=== PATIENT | female | born 1970 | race Caucasian/White ===

== ENCOUNTER 2018-03-17 11:13 | Emergency (ER) | payer MEDICAID ==
[2018-03-17 11:57] LABS: MUDS CUTOFF CONCENTRATIONS CUTOFF CONC BELOW:
[2018-03-17 12:01] LABS: BILIRUBIN,URINE NEGATIVE (NEGATIVE); GLUCOSE, URINE (UA) NEGATIVE (NEGATIVE); KETONES,URINE (UA) NEGATIVE (NEGATIVE); LEUKOCYTE ESTERASE, URINE NEGATIVE (NEGATIVE); NITRITE,URINE NEGATIVE (NEGATIVE); OCCULT BLOOD,URINE NEGATIVE (NEGATIVE); PH,URINE 5.5 PH (5.0-7.5); PROTEIN,URINE NEGATIVE (NEGATIVE); UROBILINOGEN,URINE 0.2 (NORMAL) E.U./dL (NORMAL)
[2018-03-17 12:05] LABS: CLARITY,URINE CLEAR (CLEAR); HCG UR QUAL NEGATIVE
[2018-03-17 12:13] LABS: ACETAMINOPHEN < 10 ug/mL (10-30); ALBUMIN 3.8 g/dL (3.2-5.5); ALBUMIN/GLOBULIN RATIO 1.3 (1.0-2.2); ALKALINE PHOSPHATASE 54 IU/L (42-121); ALT ALANINE AMINOTRANSFERASE 21 IU/L (10-60); AST ASPARTATE AMINOTRANSFERASE 30 IU/L (10-42); BILIRUBIN,TOTAL 0.5 mg/dL (0.2-1.0); BUN - BLOOD UREA NITROGEN 21 mg/dL (6-20); CALCIUM 8.5 mg/dL (8.5-10.3); CARBON DIOXIDE - CO2 27 mmol/L (21-32); CHLORIDE 101 mmol/L (101-111); CREATININE 0.7 mg/dL (0.4-1.0); GFR - MDRD 90 (>89); GLUCOSE 100 mg/dL (70-100); LIPASE 27 U/L (22-51); SALICYLATE < 6.0 mg/dL; SODIUM 136 mmol/L (135-145); TOTAL PROTEIN 6.8 g/dL (6.7-8.2)
[2018-03-17] MEDS ORDERED: TOPIRAMATE 100 MG TABLET PO STA (12:18)
[2018-03-17] MEDS ORDERED: clonazePAM 0.5 MG TABLET PO STA (12:21)
[2018-03-17 12:22] LABS: AMPHETAMINE SCREEN,URINE NEGATIVE (NEGATIVE); BENZODIAZEPINES SCREEN, URINE NEGATIVE (NEGATIVE); COCAINE SCREEN URINE POSITIVE (NEGATIVE); METHADONE SCREEN, URINE NEGATIVE (NEGATIVE); METHAMPHETAMINES SCREEN, URINE NEGATIVE (NEGATIVE); OPIATE SCREEN, URINE POSITIVE (NEGATIVE); OXYCODONE SCREEN, URINE NEGATIVE (NEGATIVE); PROPOXYPHENE SCREEN, URINE NEGATIVE (NEGATIVE); TRICYCLIC ANTIDEPRESSANT,URINE NEGATIVE (NEGATIVE)
[2018-03-17 12:22] LABS: BASOPHILS % (AUTO) 0.6 %; EOSINOPHILS # (AUTO) 0.2 10^3/uL (0.0-0.7); EOSINOPHILS % (AUTO) 2.4 %; HGB - HEMOGLOBIN 11.4 g/dL (12.0-16.0); LYMPHOCYTES # (AUTO) 2.4 10^3/uL (1.5-3.5); LYMPHOCYTES % (AUTO) 30.5 %; MEAN CORPUSCULAR HEMOGLOBIN 29.2 pg (27.0-31.0); MEAN CORPUSCULAR HGB CONC 33.5 g/dL (32.0-36.0); MEAN CORPUSCULAR VOLUME 87.2 fL (81.0-99.0); MEAN PLATELET VOLUME 8.9 fL (7.9-10.8); MONOCYTES # (AUTO) 0.8 10^3/uL (0.0-1.0); MONOCYTES % (AUTO) 9.7 %; NEUTROPHILS # (AUTO) 4.4 10^3/uL (1.5-6.6); NEUTROPHILS % (AUTO) 56.8 %; PLT - PLATELET COUNT 196 10^3/uL (130-450); WHITE BLOOD COUNT 7.8 x10^3/uL (4.8-10.8)
--- NOTE | 2018-03-17 12:22 | ED Physician Documentation ---
History of Present Illness - Stated complaint Stated Complaint: MHE/FEMALE - Chief complaint Chief Complaint: MHE - History obtained from History obtained from: Patient, Family (dad) - History of Present Illness Timing: Other (This is a 47-year-old woman who presents with her father for several complaints. First and foremost is for the last month she has been depressed. She has no suicidal ideation. The root of the depression is that she has a history of drug use that finished in 2006 and then she was successful for many years but due to a number of issues she basically lost everything and m moody out here to be with her father. She is never been under treatment for depression. Of note she also stopped her Topamax which she was taking for seizure disorder around the same time as the depression started. She has relapsed into drug use and last use was about 3 days ago. Secondly she has urinary urgency and frequency without dysuria or flank pain. Finally she has toenail fungus.) Review of Systems Constitutional: denies: Fever, Chills, Weight Loss Eyes: reports: Reviewed and negative Cardiac: denies: Chest pain / pressure, Palpitations Respiratory: denies: Dyspnea, Cough PD PAST MEDICAL HISTORY - Present Medications Home Medications: Ambulatory Orders Medication Instructions Recorded Confirmed FLUoxetine [PROzac] 20 mg PO DAILY #30 capsule 03/17/18 Lorazepam [Ativan] 1 mg PO TID PRN #15 tablet 03/17/18 - Allergies Allergies/Adverse Reactions: Allergies Allergy/AdvReac Type Severity Reaction Status Date / Time No Known Drug Allergies Allergy Verified 03/17/18 11:24 PD ED PE NORMAL - Vitals Vital signs reviewed: Yes - General General: Alert and oriented X 3, Other (Somewhat restless and intermittently tearful) - HEENT HEENT: PERRL, EOMI - Neck Neck: Supple, no meningeal sign, No bony TTP - Cardiac Cardiac: RRR, No murmur - Respiratory Respiratory: No respiratory distress, Clear bilaterally - Abdomen Abdomen: Non tender - Back Back: No CVA TTP, No spinal TTP - Derm Derm: Normal color, Warm and dry - Extremities Extremities: Other (The dorsum of the right hand is swollen and tender but without warmth or limited range of motion. She denies any recent injection drug use there. She does state that she is might of hit it on something.) - Neuro Neuro: Alert and oriented X 3, Normal speech - Psych Psych: Normal mood, Normal affect Results - Vitals Vitals: Vital Signs - 24 hr 03/17/18 11:20 Temperature 36.5 C Heart Rate 63 Respiratory 16 Rate Blood Pressure 132/108 H O2 Saturation 99 Oxygen O2 Source Room air - Labs Labs: Laboratory Tests 03/17/18 03/17/18 03/17/18 11:30 11:30 11:50 WBC 7.8 RBC 3.90 L Hgb 11.4 L Hct 34.0 L MCV 87.2 MCH 29.2 MCHC 33.5 RDW 15.0 Plt Count 196 MPV 8.9 Neut # (Auto) 4.4 Lymph # (Auto) 2.4 [place] # (Auto) 0.8 Eos # (Auto) 0.2 Baso # (Auto) 0.0 Absolute Nucleated RBC 0.00 Nucleated RBC % 0.0 Sodium Potassium Chloride Carbon Dioxide Anion Gap BUN Creatinine Estimated GFR (MDRD) Glucose Calcium Total Bilirubin AST ALT Alkaline Phosphatase Total Protein Albumin Globulin Albumin/Globulin Ratio Lipase TSH Thyroxine (T4) Free T3 pg/mL Urine Color YELLOW Urine Clarity CLEAR Urine pH 5.5 Ur Specific [place] 1.025 Urine Protein NEGATIVE Urine Glucose (UA) NEGATIVE Urine Ketones NEGATIVE Urine Occult Blood NEGATIVE Urine Nitrite NEGATIVE Urine Bilirubin NEGATIVE Urine Urobilinogen 0.2 (NORMAL) Ur Leukocyte Esterase NEGATIVE Ur Microscopic Review NOT INDICATED Urine Culture Comments NOT INDICATED Urine HCG, Qual NEGATIVE Salicylates Urine Opiates Screen POSITIVE H Ur Oxycodone Screen NEGATIVE Urine Methadone Screen NEGATIVE Ur Propoxyphene Screen NEGATIVE Acetaminophen Ur Barbiturates Screen NEGATIVE Ur Tricyclics Screen NEGATIVE Ur Phencyclidine Scrn NEGATIVE Ur Amphetamine Screen NEGATIVE U Methamphetamines Scrn NEGATIVE U Benzodiazepines Scrn NEGATIVE Urine Cocaine Screen POSITIVE H U Cannabinoids Screen NEGATIVE Ethyl Alcohol 03/17/18 03/17/18 03/17/18 11:50 11:50 11:50 WBC RBC Hgb Hct MCV MCH MCHC RDW Plt Count MPV Neut # (Auto) Lymph # (Auto) [place] # (Auto) Eos # (Auto) Baso # (Auto) Absolute Nucleated RBC Nucleated RBC % Sodium 136 Potassium 3.7 Chloride 101 Carbon Dioxide 27 Anion Gap 8.0 BUN 21 H Creatinine 0.7 Estimated GFR (MDRD) 90 Glucose 100 Calcium 8.5 Total Bilirubin 0.5 AST 30 ALT 21 Alkaline Phosphatase 54 Total Protein 6.8 Albumin 3.8 Globulin 3.0 Albumin/Globulin Ratio 1.3 Lipase 27 TSH 8.15 H Thyroxine (T4) 7.83 Free T3 pg/mL Urine Color Urine Clarity Urine pH Ur Specific [place] Urine Protein Urine Glucose (UA) Urine Ketones Urine Occult Blood Urine Nitrite Urine Bilirubin Urine Urobilinogen Ur Leukocyte Esterase Ur Microscopic Review Urine Culture Comments Urine HCG, Qual Salicylates < 6.0 Urine Opiates Screen Ur Oxycodone Screen Urine Methadone Screen Ur Propoxyphene Screen Acetaminophen < 10 L Ur Barbiturates Screen Ur Tricyclics Screen Ur Phencyclidine Scrn Ur Amphetamine Screen U Methamphetamines Scrn U Benzodiazepines Scrn Urine Cocaine Screen U Cannabinoids Screen Ethyl Alcohol < 5.0 03/17/18 11:50 WBC RBC Hgb Hct MCV MCH MCHC RDW Plt Count MPV Neut # (Auto) Lymph # (Auto) [place] # (Auto) Eos # (Auto) Baso # (Auto) Absolute Nucleated RBC Nucleated RBC % Sodium Potassium Chloride Carbon Dioxide Anion Gap BUN Creatinine Estimated GFR (MDRD) Glucose Calcium Total Bilirubin AST ALT Alkaline Phosphatase Total Protein Albumin Globulin Albumin/Globulin Ratio Lipase TSH Thyroxine (T4) Free T3 pg/mL 3.72 Urine Color Urine Clarity Urine pH Ur Specific [place] Urine Protein Urine Glucose (UA) Urine Ketones Urine Occult Blood Urine Nitrite Urine Bilirubin Urine Urobilinogen Ur Leukocyte Esterase Ur Microscopic Review Urine Culture Comments Urine HCG, Qual Salicylates Urine Opiates Screen Ur Oxycodone Screen Urine Methadone Screen Ur Propoxyphene Screen Acetaminophen Ur Barbiturates Screen Ur Tricyclics Screen Ur Phencyclidine Scrn Ur Amphetamine Screen U Methamphetamines Scrn U Benzodiazepines Scrn Urine Cocaine Screen U Cannabinoids Screen Ethyl Alcohol - Rads (name of study) R hand 3v Radiology: EMP read contemporaneously (NAD, old frxs, hardware) PD MEDICAL DECISION MAKING - ED course ED course: This is a 47-year-old woman who presents with her father by private vehicle for several issues. The most pressing is depression. She declined voluntary hospitalization but would like to do a tele-psychiatry consultation for medication options. Secondly she has urinary frequency but there is no evidence of UTI. Third she has dorsal hand pain without evidence clinically of infection, we will x-ray it. Finally she has toenail fungus. I recommended holding off on treating that issue given her history of hepatitis C and liver disease until she has primary care. Telepsych done by Dr Hussein, recommends eval for inpt tx, prozac 10mg tonight, then 20mg thereafter and also agrees with continuing her Topamax dose at 150 mg at night. Arrangements made to go to [facility] and [facility] were completed noting that the patient signed AGAINST MEDICAL ADVICE only for transport by ambulance which I did recommend. Her father will drive her. Departure - Departure Disposition: [facility] DC/Xfer Clinical Impression: Cocaine abuse Depression Qualifiers: Depression Type: major depressive disorder Major depression recurrence: recurrent Active/Remission status: currently active Major depression episode severity: severe Psychotic features: without psychotic features Qualified Code(s): F33.2 - Major depressive disorder, recurrent severe without psychotic features Condition: Stable Record reviewed to determine appropriate education?: Yes Prescriptions: FLUoxetine [PROzac] 20 mg PO DAILY #30 capsule Lorazepam [Ativan] 1 mg PO TID PRN #15 tablet PRN Reason: Anxiety
--- NOTE | 2018-03-17 12:59 | XRAY Report ---
Reason: hand inj Procedure Date: 03/17/2018 Accession Number: [id number] / [id number] Procedure: XR - Hand 3 View RT CPT Code: FULL RESULT: EXAM: RIGHT HAND RADIOGRAPHY EXAM DATE: 03/17/2018 12:46 PM. CLINICAL HISTORY: Right hand pain. COMPARISON: None. TECHNIQUE: 3 views. FINDINGS: Bones: Well corticated fragmentation of the ulnar styloid process is seen presumably related to old trauma. There is arthrodesis changes involving the DIP joint of the fifth finger. No acute fracture or bone lesion is identified. Slight osteopenia is seen. Joints: Normal. No subluxations. Soft Tissues: No radiodense soft tissue abnormality is seen. IMPRESSION: No acute osseous abnormality demonstrated. No radiodense soft tissue abnormality demonstrated. RADIA
[2018-03-17] MEDS ORDERED: LORazepam 0.5 MG TABLET PO STA ×2 (17:13→19:56)
[2018-03-17] MEDS ORDERED: FLUoxetine 10 MG CAPSULE PO STA (18:11)
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
[2018-03-17 20:41] VITALS: BP 110/68
== END 2018-03-17 20:46 ==
LOC: ED 11:13
DX: F14.10 Cocaine abuse, uncomplicated (principal); F33.2 Major depressive disorder, recurrent severe without psychotic features
CPT/HCPCS: 36415; 73130; 80053; 80306; 80307; 80320; 80329; 81003; 81025; 83690; 84436; 84443; 84481; 85025; 99283; 99284; A9270; G0425; Q3014; 81001; 87086

== ENCOUNTER 2018-05-09 18:40 | Inpatient (IN) | payer MEDICAID ==
[2018-05-09] MEDS ORDERED: HYDROmorphone 2 MG/ML VIAL IVP STA (18:57)
--- NOTE | 2018-05-09 18:59 | ED Physician Documentation ---
PD HPI LOWER EXT INJURY - Stated complaint Stated Complaint: KNEE PX - Chief complaint Chief Complaint: Wound - History obtained from History obtained from: Patient - History of Present Illness PD HPI LOW EXT INJURY LOCATION: Right (This is a 47-year-old woman with history of drug abuse, specifically heroin, she says she has not been using it about 5 days. She had a scrape or something on the right knee and it has been very swollen and painful. She denies fevers but does have chills.) Review of Systems Ten Systems: 10 systems reviewed and negative Constitutional: reports: Chills. 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 - Present Medications Home Medications: Ambulatory Orders Medication Instructions Recorded Confirmed Topiramate [Topamax] 3 tab PO QPM #90 tablet 03/18/18 - Allergies Allergies/Adverse Reactions: Allergies Allergy/AdvReac Type Severity Reaction Status Date / Time No Known Drug Allergies Allergy Verified 05/09/18 18:50 - Social History Does the pt smoke?: No Smoking Status: Never smoker Does the pt drink ETOH?: No Does the pt have substance abuse?: Yes - Family History Family history: reports: Non contributory - Immunizations Immunizations are current?: Yes - POLST Patient has POLST: No PD ED PE NORMAL - Vitals Vital signs reviewed: Yes - General General: Alert and oriented X 3, Other (She is restless and anxious and appears either high on something or withdrawing from something.) - HEENT HEENT: PERRL, EOMI - Neck Neck: Supple, no meningeal sign, No bony TTP - Cardiac Cardiac: RRR (Tachycardic), No murmur - Respiratory Respiratory: No respiratory distress, Clear bilaterally - Abdomen Abdomen: Normal bowel sounds, Soft, Non tender - Back Back: No CVA TTP, No spinal TTP - Extremities Extremities: Other (She has massive septic right knee prepatellar bursitis with reactive swelling and cellulitis from just above the knee to down to the ankle.) - Neuro Neuro: Alert and oriented X 3, Normal speech Results - Vitals Vitals: Vital Signs - 24 hr 02/26/19 02/26/19 02/26/19 18:46 19:31 20:18 Temperature 36.9 C Heart Rate 134 H 118 H 125 H Respiratory 18 16 16 Rate Blood Pressure 96/76 77/56 L 83/66 L O2 Saturation 97 100 95 05/09/18 05/09/18 05/09/18 20:28 20:34 20:48 Temperature Heart Rate 122 H 125 H 122 H Respiratory 18 18 16 Rate Blood Pressure 103/91 H 107/85 H 73/52 L O2 Saturation 99 100 94 05/09/18 20:51 Temperature Heart Rate 116 H Respiratory 16 Rate Blood Pressure 79/52 L O2 Saturation 94 Oxygen O2 Source Room air - Labs Labs: Microbiology 05/09/18 20:15 Wound Culture - Preliminary Knee - Right Laboratory Tests 05/09/18 05/09/18 05/09/18 19:56 19:56 19:56 WBC 22.6 H RBC 3.71 L Hgb 10.6 L Hct 31.2 L MCV 84.3 MCH 28.7 MCHC 34.0 RDW 14.8 Plt Count 286 MPV 7.9 Neut # (Auto) Not Reportable Lymph # (Auto) Not Reportable [place] # (Auto) Not Reportable Eos # (Auto) Not Reportable Baso # (Auto) Not Reportable Absolute Nucleated RBC Not Reportable Total Counted 100 Band Neuts % (Manual) 12 H Abnorm Lymph % (Manual) 0 Nucleated RBC % Not Reportable Neutrophils # (Manual) 19.9 H Lymphocytes # (Manual) 0.2 L Monocytes # (Manual) 2.5 H Eosinophils # (Manual) 0.0 Basophils # (Manual) 0.0 Differential Comment MANUAL DIFFERENTIAL Manual Slide Review Indicated WBC Morphology NORMAL APPEARANCE Platelet Estimate NORMAL (130-450,000) Platelet Morphology NORMAL APPEARANCE RBC Morph Micro Appear NORMAL APPEARANCE Sodium 137 Potassium 3.1 L Chloride 99 L Carbon Dioxide 24 Anion Gap 14.0 H BUN 14 Creatinine 1.5 H Estimated GFR (MDRD) 38 L Glucose 66 L Lactic Acid 1.4 Calcium 8.3 L Total Bilirubin 1.0 AST 39 ALT 20 Alkaline Phosphatase 56 Total Protein 7.0 Albumin 3.4 Globulin 3.6 Albumin/Globulin Ratio 0.9 L Lipase 21 L Procedures - Intubation Provider: Emergency physician Medications: Ketamine (250mg IV) Blade: Bassam (4) Tube: Size-enter number (7.5), Cuffed, Marked at lips-enter cm (23) Route: Oral Confirmation: Direct visualization, Bilateral breath sounds, No abdominal breath sound, Pulse ox, Chest xray Complications: No compications - Abscess I&D (location) R knee prepatellar bursa Preparation: Betadine, Lidocaine 1% Incision: Incised with scalpel, Needle aspiration, Purulent drainage, Loculations broken, Packed (with 1/2 gauze), Culture obtained Other: Pt tolerated well, Antibiotic prescribed - Central Line Central Line Preparation: Unable to obtain consent, Time out completed, Ultrasound used, Sterile prep and drape Central line location: Right IJ Central line type: Triple lumen Central line aftercare: Chlorhexidine disc placed, Secured, Placement confirmed, No pneumothorax, No complications, Bundle checklist complete, Pt tolerated well - Procedural sedation Sedation prep: Informed consent, Time out completed, Last meal (5pm), PE performed, AHA 2 - mild disease Sedation medications: etomidate (10mg IVP) Patient status during sedation: Responds to tactile, Vitals remained stable, Maintained airway, Recovered uneventfully Sedation recovery: Recovered uneventfully Time in sedation (Minutes): 15 PD MEDICAL DECISION MAKING - ED course ED course: This is a 47-year-old woman whose major issue is his drug abuse who also presents with septic prepatellar bursitis of the right leg with reactive cellulitis of the whole right leg. Case was discussed by phone with the on-call orthopedist, Dr. Mariscal. It needs to be incised and drained, and given the examination and comorbidities needs to be admitted. He did want me to go ahead and I indeed in the ER and will follow her case through her hospitalization and consult tomorrow. The knee was incised using conscious sedation with etomidate and packed with quarter-inch packing. She was administered vancomycin after blood cultures. Call to Dr. Landeros for admission at 8:23 PM. She did start to become hypotensive, and she was very restless, presumed due to drug abuse and withdrawal. Dr. Landeros saw the patient and requested intubation and a central line for management in the ICU and I performed these procedures. Also he wanted gram-negative coverage added and Zosyn was administered. - Critical Care Time(min): 45 Time Includes: Direct patient care, Review records, Reassess patient, Document care, Coordinate care, Medical consult, Family consult for tx dec Data interpretation: Labs, Pulse ox, ABG Procedures included in critical care time: Peripheral IV Procedures excluded from critical care time: Central IV, Intubation Departure - Departure Disposition: [facility] DC/Xfer Clinical Impression: Bursitis, prepatellar, right, Cellulitis of right leg, Heroin abuse Condition: Serious
[2018-05-09] MEDS: VANCOMYCIN INJ 1.5 GM in SODIUM CHLORIDE 0.9% 500 ML IV STA ×2 (19:33→20:17)
[2018-05-09] MEDS ORDERED: VANCOMYCIN 1 GM VIAL ONE (19:53)
[2018-05-09] MEDS ORDERED: SODIUM CHLORIDE 0.9% 1,000 ML IV ONE (20:01)
[2018-05-09] MEDS ORDERED: ETOMIDATE 40 MG/20 ML VIAL IVP STA (20:01)
[2018-05-09] MEDS ORDERED: LORazepam 2 MG/ML VIAL IVP STA (20:01)
[2018-05-09] MEDS ORDERED: BUFFERED LIDOCAINE 10 ML SYRINGE SUBQ STA (20:02)
[2018-05-09 20:05] LABS: BASOPHILS % (AUTO) 0.3 %; EOSINOPHILS % (AUTO) 0.1 %; HGB - HEMOGLOBIN 10.6 g/dL (12.0-16.0); LYMPHOCYTES % (AUTO) 3.4 %; MEAN CORPUSCULAR HEMOGLOBIN 28.7 pg (27.0-31.0); MEAN CORPUSCULAR VOLUME 84.3 fL (81.0-99.0); MEAN PLATELET VOLUME 7.9 fL (7.9-10.8); MONOCYTES % (AUTO) 11.7 %; NEUTROPHILS % (AUTO) 84.5 %; PLT - PLATELET COUNT 286 10^3/uL (130-450); RED BLOOD COUNT 3.71 10^6/uL (4.20-5.40); RED CELL DISTRIBUTION WIDTH 14.8 % (12.0-15.0); WHITE BLOOD COUNT 22.6 x10^3/uL (4.8-10.8)
[2018-05-09 20:10] LABS: ABNORMAL LYMPHS % (MANUAL) 0 %
[2018-05-09 20:25] LABS: ALBUMIN 3.4 g/dL (3.2-5.5); ALBUMIN/GLOBULIN RATIO 0.9 (1.0-2.2); BAND NEUTROPHILS % (MANUAL) 12 %; CALCIUM 8.3 mg/dL (8.5-10.3); CREATININE 1.5 mg/dL (0.4-1.0); DIFFERENTIAL COMMENT MANUAL DIFFERENTIAL; LYMPHOCYTES # (MANUAL) 0.2 10^3/uL (1.5-3.5); LYMPHOCYTES % (MANUAL) 1 %; MONOCYTES # (MANUAL) 2.5 10^3/uL (0.0-1.0); NEUTROPHILS # (MANUAL) 19.9 10^3/uL (1.5-6.6); NEUTROPHILS % (MANUAL) 76 %; PLATELET ESTIMATE, MANUAL NORMAL (130-450,000) (NORMAL); PLATELET MORPHOLOGY NORMAL APPEARANCE (NORMAL); RBC MORPHOLOGY (MULTIPLE) NORMAL APPEARANCE (NORMAL)
[2018-05-09] MEDS ORDERED: TOPIRAMATE 100 MG TABLET PO STA (20:25)
[2018-05-09] MEDS ORDERED: TOPIRAMATE 25 MG TABLET PO STA (20:25)
[2018-05-09] MEDS ORDERED: HALOPERIDOL 5 MG/ML VIAL IVP ONE (20:41)
[2018-05-09] MEDS ORDERED: PIPERACILLIN/TAZOBACTAM 4.5 GM in SODIUM CHLORIDE 0.9% MINIBAG 100 ML IV STA (20:52)
[2018-05-09] MEDS ORDERED: KETAMINE 500 MG/10 ML VIAL IVP STA (20:52)
[2018-05-09] MEDS ORDERED: ROCURONIUM 50 MG/5 ML VIAL IVP STA (20:53)
[2018-05-09] MEDS: fentaNYL 2,500 MCG in SODIUM CHLORIDE 0.9% 200 ML IV STA (21:45)
--- NOTE | 2018-05-09 21:53 | XRAY Report ---
Reason: line placement Procedure Date: 05/09/2018 Accession Number: [id number] / [id number] Procedure: XR - Chest for Line Placement CPT Code: FULL RESULT: EXAM: CHEST RADIOGRAPHY EXAM DATE: 05/09/2018 09:45 PM. CLINICAL HISTORY: Line placement. COMPARISON: None. TECHNIQUE: Supine AP view. FINDINGS: Lungs/Pleura: The endotracheal tube is 1 cm above the michelle. There is a small asymmetric airspace opacity laterally in the upper right lung. Otherwise clear. No interstitial abnormality or peribronchial cuffing. No gross pleural fluid or gross pneumothorax on this supine study. Mediastinum: Within exam limitations, the cardiomediastinal contour is normal. Right IJ catheter at the innominate SVC junction. Other: None. IMPRESSION: 1. Endotracheal tube 1 cm above the michelle. 2. Right IJ catheter at the innominate SVC junction. 3. Small asymmetric focal airspace opacity laterally in the upper right lung which could be pneumonic. Clinical correlation is requested. Radiographic follow-up is recommended. RADIA
[2018-05-09] MEDS ORDERED: VANCOMYCIN PER PHARMACY 100 GM in SODIUM CHLORIDE 0.9% 250 ML IV SCH (22:00)
[2018-05-09] MEDS ORDERED: SODIUM CHLORIDE 0.9% 1,000 ML IV SCH (22:00)
[2018-05-09] MEDS ORDERED: MIDAZOLAM 2 MG/2 ML VIAL IVP SCH (22:13)
[2018-05-09] MEDS ORDERED: MIDAZOLAM 50 MG/10 ML VIAL ONE (22:31)
[2018-05-09] MEDS: MIDAZOLAM DRIP 50 MG/100 ML BAG IV SCH (22:40)
[2018-05-09 23:36] LABS: ABG BASE EXCESS -8.7 mmol/L (-2.0-3.0); ABG HCO3 17.5 mmol/L (22.0-26.0); ABG PCO2 39 mmHg (34-45); ABG PH 7.27 (7.35-7.45); ABG TCO2 18.7 MMOL/L (21.0-29.0)
[2018-05-09 23:37] LABS: ABG OXYGEN SATURATION 99 % (94-98)
[2018-05-09 23:38] LABS: ABG PO2 193 mmHg (80-100); ALLEN TEST POSITIVE
--- NOTE | 2018-05-09 23:42 | HISTORY & PHYSICAL EXAMINATION ---
Chief Complaint - Chief Complaint Chief Complaint: right lower extremity pain History of Present Illness - Admitted From Admitted From:: [facility] ED - History Obtained From Records Reviewed: yes History obtained from: ED physician Exam Limitations: patient agitated, withdrawing from heroin use - History of Present Illness HPI Comment/Other: Patient seen on 05/09/18 at 8:45pm This history is very limited because the patient is agitated and writhing in bed as a result of withdrawing from heroin. The patient is a 47 y/o female who was brought in by a relative for swelling over her right knee. She complained of significant pain in the knee. There was redness around the knee extending almost down to the ankle. Patient was writhing in bed, contorting her extremities to the point of concern for self-injury. Here left foot was splinted to minimize this. She uses heroin. It is reported that she last used it 5 days ago. When asked if she injects into her knee. She responded: Not typically. During exam the patient's pressures constantly dropped in to the 70's and 60's. There was no family at bedside and no contact to immediately reach someone for information History - Past Medical History Cardiovascular: reports: None Respiratory: reports: None Neuro: reports: None Endocrine/Autoimmune: reports: None GI: reports: None : reports: None HEENT: reports: None Psych: reports: Depression Musculoskeletal: reports: None Derm: reports: None MRSA Hx?: No - Past Surgical History General: reports: Appendectomy /[employer] CAR: reports: Dilation and currettage - POLST Patient has POLST: No Meds/Allgy - Home Medications Home Medications: Ambulatory Orders Medication Instructions Recorded Confirmed Topiramate [Topamax] 3 tab PO QPM #90 tablet 03/18/18 - Allergies Allergies/Adverse Reactions: Allergies Allergy/AdvReac Type Severity Reaction Status Date / Time No Known Drug Allergies Allergy Verified 05/09/18 18:50 Review of Systems - Other Findings Other Findings: ROS is limited due to patient's AMS Prior Level of Functionality: It is not possible to determine at the moment because the patient is unable to provide information and there is no family member to assist with the history Exam - Vital Signs Vital Signs: Vital Signs x48h Temp Pulse Pulse Resp BP BP Pulse Ox 05/09/18 22:20 36.7 C 100 14 79/53 L 97 05/09/18 22:15 103 H 05/09/18 21:55 103 H 12 93/67 100 05/09/18 21:40 106 H 93/67 05/09/18 21:30 110 H 14 92/63 100 05/09/18 21:25 117 H 97/63 05/09/18 21:20 119 H 17 92/70 100 05/09/18 21:15 102 H 12 86/63 L 100 05/09/18 21:10 106 H 101/53 L 05/09/18 21:05 83/57 L 05/09/18 20:51 116 H 16 79/52 L 94 05/09/18 20:48 122 H 16 73/52 L 94 05/09/18 20:34 125 H 18 107/85 H 100 05/09/18 20:28 122 H 18 103/91 H 99 05/09/18 20:18 125 H 16 83/66 L 95 05/09/18 19:31 118 H 16 77/56 L 100 05/09/18 19:30 118 H 16 05/09/18 18:46 36.9 C 134 H 18 96/76 97 - Physical Exam General Appearance: positive: Moderate distress, Other (Agitated, Writhing) Eyes Bilateral: positive: Normal inspection, EOMI, Conjunctivae nml, No scleral icterus ENT: positive: ENT inspection nml Neck: positive: Nml inspection, No JVD, Trachea midline Respiratory: positive: No respiratory distress. negative: Wheezes, Rales, Rhonchi Cardiovascular: positive: No murmur, Tachycardia Abdomen: positive: Non-tender, Nml bowel sounds, No distention Back: positive: Nml inspection Skin: positive: No rash, Dry. negative: Cyanosis Extremities: positive: Other (swelling and redness over the right knee. Painful to palpitation) Neurologic/Psychiatric: positive: Other (Restless, agitated, writhing in bed with contractures of extremities) Sepsis Event Note (H) - Evaluation Current Stage of Sepsis: Severe sepsis Possible source of Sepsis: positive: Skin/soft tissue - Sepsis Criteria Sepsis Criteria: Recorded Heart Rate greater than 90 bpm, WBC count greater than 12,000 or less than 4000, SBP less than 90 mmHg Conclusion/Plan - Problem List (1) Septic infrapatellar bursitis of right knee Conclusion/Plan: Bursa was incised and drained by the ED physician Blood and wound cultures are pending Patient was started on vancomycin and jesus Mariscal (orthopedic) was consulted Patient has been hypotensive. As a result will place on levophed per ICU titration protocol Normal saline running at 100ml/hr (2) Heroin withdrawal Conclusion/Plan: Patient was very agitated in the ED Reported last use was 5 days ago. As a result she was sedated and intubated She is currently on fentanyl and versed drip in the ICU (3) Acute kidney injury Conclusion/Plan: Suspect 2/2 infection and hypoperfusion Hydrating patient. Expect improvement Will monitor. Will also check CK to rule out rhabdomyolysis (4) Hypokalemia Conclusion/Plan: Will replace and recheck Will also check Magnesium level and replace accordingly - Lab Results Fish Bones: 05/09/18 19:56 05/09/18 19:56 Core Measures - Anticipated LOS I expect patient to be DC'd or transferred within 96 hours.: Yes - DVT/VTE - Prophylaxis VTE/DVT Device ordered at admit?: Yes VTE/DVT Prophylaxis med ordered at admit?: Yes
[2018-05-10 00:14] LABS: MUDS CUTOFF CONCENTRATIONS CUTOFF CONC BELOW:
[2018-05-10 00:18] LABS: BILIRUBIN,URINE NEGATIVE (NEGATIVE); GLUCOSE, URINE (UA) NEGATIVE (NEGATIVE); KETONES,URINE (UA) 15 mg/dL (NEGATIVE); LEUKOCYTE ESTERASE, URINE NEGATIVE (NEGATIVE); NITRITE,URINE NEGATIVE (NEGATIVE); OCCULT BLOOD,URINE TRACE-LYSE (NEGATIVE); PH,URINE 5.5 PH (5.0-7.5); PROTEIN,URINE 30 mg/dL (NEGATIVE); UROBILINOGEN,URINE 0.2 (NORMAL) E.U./dL (NORMAL)
[2018-05-10] MEDS: fentaNYL 2,500 MCG in SODIUM CHLORIDE 0.9% 200 ML IV STA (00:18)
[2018-05-10 00:22] LABS: CLARITY,URINE HAZY (CLEAR); HCG UR QUAL NEGATIVE
[2018-05-10 00:29] LABS: AMORPHOUS SEDIMENT,UR Moderate /LPF; AMPHETAMINE SCREEN,URINE POSITIVE (NEGATIVE); BACTERIA,URINE None Seen /HPF (None Seen); BENZODIAZEPINES SCREEN, URINE NEGATIVE (NEGATIVE); COCAINE SCREEN URINE NEGATIVE (NEGATIVE); METHADONE SCREEN, URINE NEGATIVE (NEGATIVE); METHAMPHETAMINES SCREEN, URINE POSITIVE (NEGATIVE); OPIATE SCREEN, URINE POSITIVE (NEGATIVE); OXYCODONE SCREEN, URINE NEGATIVE (NEGATIVE); PROPOXYPHENE SCREEN, URINE NEGATIVE (NEGATIVE); RBC,URINE 0-5 /HPF (0-5); SQUAMOUS EPITHELIAL CELL,UR FEW Squamous (<= Few); TRICYCLIC ANTIDEPRESSANT,URINE NEGATIVE (NEGATIVE)
[2018-05-10 00:30] LABS: CASTS, URINE 11-25Course Granular /LPF
--- NOTE | 2018-05-10 00:52 | XRAY Report ---
Reason: ng tube placement Procedure Date: 05/10/2018 Accession Number: [id number] / [id number] Procedure: XR - Chest 1 View X-Ray CPT Code: 07942 FULL RESULT: EXAM: CHEST RADIOGRAPHY EXAM DATE: 05/10/2018 12:03 AM. CLINICAL HISTORY: NG tube placement. COMPARISON: CHEST FOR LINE PLACEMENT 05/09/2018 9:33 PM. TECHNIQUE: 1 view. FINDINGS IMPRESSION: 1. Interval placement of a nasogastric tube the tip of which is within the gastric fundus and may be advanced an additional 5-8 cm. 2. Stable endotracheal tube and central line position. 3. The lungs remain clear without evidence of pleural effusion or pneumothorax. RADIA
[2018-05-10] MEDS: PIPERACILLIN/TAZOBACTAM 3.375 GM in SODIUM CHLORIDE 0.9% MINIBAG 100 ML IV SCH ×4 (04:43→23:01)
[2018-05-10] MEDS: SODIUM CHLORIDE FLUSH 0.9% 10 ML SYRINGE IVP SCH ×3 (04:44→17:14)
[2018-05-10 05:06] LABS: BASOPHILS % (AUTO) 0.2 %; EOSINOPHILS % (AUTO) 0.2 %; HGB - HEMOGLOBIN 9.1 g/dL (12.0-16.0); LYMPHOCYTES # (AUTO) 1.5 10^3/uL (1.5-3.5); LYMPHOCYTES % (AUTO) 8.8 %; MEAN CORPUSCULAR HEMOGLOBIN 27.8 pg (27.0-31.0); MEAN CORPUSCULAR HGB CONC 32.7 g/dL (32.0-36.0); MEAN CORPUSCULAR VOLUME 85.1 fL (81.0-99.0); MONOCYTES # (AUTO) 1.6 10^3/uL (0.0-1.0); MONOCYTES % (AUTO) 9.3 %; NEUTROPHILS # (AUTO) 13.6 10^3/uL (1.5-6.6); NEUTROPHILS % (AUTO) 81.5 %; PLT - PLATELET COUNT 248 10^3/uL (130-450); RED BLOOD COUNT 3.29 10^6/uL (4.20-5.40); RED CELL DISTRIBUTION WIDTH 15.2 % (12.0-15.0); WHITE BLOOD COUNT 16.7 x10^3/uL (4.8-10.8)
[2018-05-10 05:08] LABS: CALCIUM 7.5 mg/dL (8.5-10.3); CREATININE 1.2 mg/dL (0.4-1.0)
[2018-05-10] MEDS: D5NS W/20 MEQ KCL 1,000 ML IV SCH ×2 (08:01→16:19)
[2018-05-10 08:02] LABS: MAGNESIUM 2.2 mg/dL (1.7-2.8); PHOSPHORUS 5.4 mg/dL (2.5-4.6)
[2018-05-10] MEDS: POTASSIUM CHLOR 20 MEQ/100 ML 20 MEQ/100 ML BAG IV SCH ×4 (08:07→11:38)
--- NOTE | 2018-05-10 09:09 | PROVIDER PROGRESS NOTE ---
Assessment/Plan - Problem List (1) Shock Assessment/Plan: Her systolic BP was initially 65 which improved to 95-100 with fluids and pressors were ordered if needed but not used. Suspect hypovolemic shock vs septic shock from septic knee and cellulitis. Continue iv hydration, iv antibiotics, await culture results, follow daily BMP and WBC. (2) Septic infrapatellar bursitis of right knee Assessment/Plan: She had an I & D in the ER and pus was obtained and sent for cultures. She is on empiric iv Vanco and Zosyn. WBC has improved slightly. Will add Dilaudid scheduled iv dosing while she is on a Versed drip and unable to communicate her pain level. Orthopedic consult for today. (3) Cellulitis of right leg Assessment/Plan: Blood cultures were done in ER, along with the wound specimen. She is on empiric iv Vanco and Zosyn. WBC has improved slightly. Continue present plan. (4) Heroin withdrawal Assessment/Plan: She is on Versed drip and intubated. Follow VBG since pH was acidotic yesterday. Continue for iv sedation for at least 24 hours, to get her through Heroin and Meth withdrawal period. (5) Methamphetamine use Assessment/Plan: She is on Versed drip. Continue for 24 hours, to get her through Heroin and Meth withdrawal period. (6) JUAN FRANCISCO (acute kidney injury) Assessment/Plan: Creat of 1.5 has improved to 1.2 today. Continue peripher iv hydration. Follow BM daily. (7) Hypokalemia Assessment/Plan: Peripheral hydration with K and K riders ordered. Follow BMP daily. (8) Cardiac murmur Assessment/Plan: In an IVDA with septic joint, endocarditis is highly likely. The murmur was not heard yesterday, although she was agitated and moving, possibly difficult to assess then. Will obtain an Echo today to evaluate the murmur and for vegetations. (9) Anemia Qualifiers: Anemia type: unspecified type Qualified Code(s): D64.9 - Anemia, unspeci fied Assessment/Plan: Possibly partly from hemodilution, but given her low Albumen, I suspect also low stores of essential elements. Check B12, Folate and Iron panel, replace is needed when extubated and able to take po. Follow CBC daily. Transfuse if Hgb <7. - Current Meds Current Meds: Current Medications Generic Name Dose Route Start Last Admin Trade Name Greg PRN Reason Stop Dose Admin Piperacillin Sod/Tazobactam 100 mls @ 200 mls/hr 05/10/18 04:00 05/10/18 06:56 Sod 3.375 gm/ Sodium Chloride IV Infused Q6H NAVID Infusion Midazolam HCl 50 mg in 100 mls @ 5.262 mls/hr 05/09/18 23:00 05/10/18 08:21 Versed Drip IV 0.04 mg/kg/hr .Q19H1M NAVID 5.262 mls/hr Titration Protocol 0.04 MG/KG/HR Norepinephrine Bitartrate 8 mg 250 mls @ 15 mls/hr 05/10/18 01:00 05/10/18 02:08 / Dextrose IV Not Given .[id number] NAVID Protocol 8 MCG/MIN Potassium Chloride 20 meq in 100 mls @ 100 mls/hr 05/10/18 07:00 05/10/18 08:07 Potassium Chloride IV 05/10/18 10:59 100 mls/hr Q1H NAVID Administration Protocol Potassium Chloride/Dextrose/Sod Cl 1,000 mls @ 125 mls/hr 05/10/18 08:00 05/10/18 08:01 IV 125 mls/hr .Q8H NAVID Administration Sodium Chloride 10 ml 05/10/18 01:00 05/10/18 04:44 Normal Saline Flush 0.9% IVP 10 ml 0100,0900,1700 NAVID Administration - Lab Result Fish Bone Diagrams: 05/10/18 04:35 05/10/18 04:35 - Additional Planning My Orders: My Active Orders 05/10/18 VENOUS BLOOD GAS [BG] Routine 05/10/18 07:47 CALCIUM, IONIZED ([facility]) [BG] Stat 05/10/18 08:00 D5ns W/20 Meq KCl 1,000 ml IV 125 mls/hr 05/10/18 10:00 Chlorhexidine [Peridex] 5 ml PO TID HYDROmorphone (VIAL) [Dilaudid (Vial)] 1 mg IVP Q3H 05/10/18 15:00 BMP - BASIC METABOLIC PANEL [CHEM] Timed 05/11/18 05:00 ABG - ARTERIAL BLOOD GAS [BG] DAILYLAB BMP - BASIC METABOLIC PANEL [CHEM] DAILYLAB CBC - COMP BLD CT W/AUTO DIFF [HEME] DAILYLAB 05/12/18 05:00 BMP - BASIC METABOLIC PANEL [CHEM] DAILYLAB CBC - COMP BLD CT W/AUTO DIFF [HEME] DAILYLAB 05/13/18 05:00 BMP - BASIC METABOLIC PANEL [CHEM] DAILYLAB CBC - COMP BLD CT W/AUTO DIFF [HEME] DAILYLAB 05/14/18 05:00 BMP - BASIC METABOLIC PANEL [CHEM] DAILYLAB CBC - COMP BLD CT W/AUTO DIFF [HEME] DAILYLAB Subjective - Subjective Nursing Reports: Other (Intubated, has some spontaneous movements) Objective Vital Signs: Vital Signs - 24 hr 05/09/18 05/09/18 05/09/18 18:46 19:30 19:31 Temperature 36.9 C Heart Rate 134 H 118 H 118 H Heart Rate [ Monitoring electrodes] Respiratory 18 16 16 Rate Blood Pressure 96/76 77/56 L Blood Pressure [Left Brachial artery] O2 Saturation 97 100 05/09/18 05/09/18 05/09/18 20:18 20:28 20:34 Temperature Heart Rate 125 H 122 H 125 H Heart Rate [ Monitoring electrodes] Respiratory 16 18 18 Rate Blood Pressure 83/66 L 103/91 H 107/85 H Blood Pressure [Left Brachial artery] O2 Saturation 95 99 100 05/09/18 05/09/18 05/09/18 20:48 20:51 21:05 Temperature Heart Rate 122 H 116 H Heart Rate [ Monitoring electrodes] Respiratory 16 16 Rate Blood Pressure 73/52 L 79/52 L 83/57 L Blood Pressure [Left Brachial artery] O2 Saturation 94 94 05/09/18 05/09/18 05/09/18 21:10 21:15 21:20 Temperature Heart Rate 106 H 102 H 119 H Heart Rate [ Monitoring electrodes] Respiratory 12 17 Rate Blood Pressure 101/53 L 86/63 L 92/70 Blood Pressure [Left Brachial artery] O2 Saturation 100 100 05/09/18 05/09/18 05/09/18 21:25 21:30 21:40 Temperature Heart Rate 117 H 110 H 106 H Heart Rate [ Monitoring electrodes] Respiratory 14 Rate Blood Pressure 97/63 92/63 93/67 Blood Pressure [Left Brachial artery] O2 Saturation 100 05/09/18 05/09/18 05/09/18 21:55 22:15 22:20 Temperature 36.7 C Heart Rate 103 H 103 H Heart Rate [ 100 Monitoring electrodes] Respiratory 12 14 Rate Blood Pressure 93/67 Blood Pressure 79/53 L [Left Brachial artery] O2 Saturation 100 97 05/09/18 05/10/18 05/10/18 23:00 01:00 01:24 Temperature 36.8 C Heart Rate 95 Heart Rate [ 101 H 98 Monitoring electrodes] Respiratory 14 16 Rate Blood Pressure Blood Pressure 86/57 L 97/66 [Left Brachial artery] O2 Saturation 100 100 05/10/18 05/10/18 05/10/18 03:00 04:00 04:52 Temperature Heart Rate 87 Heart Rate [ 91 89 Monitoring electrodes] Respiratory 14 14 Rate Blood Pressure Blood Pressure 96/62 94/63 [Left Brachial artery] O2 Saturation 100 100 05/10/18 05/10/18 05/10/18 04:59 08:00 08:15 Temperature 36.7 C 36.5 C Heart Rate 91 Heart Rate [ 88 128 H Monitoring electrodes] Respiratory 15 26 H Rate Blood Pressure Blood Pressure 94/62 101/75 [Left Brachial artery] O2 Saturation 100 91 L Oxygen O2 Source Room air I&O (Last 24 Hrs): Intake and Output Totals x24h 05/08/18 05/09/18 05/10/18 23:59 23:59 23:59 Intake Total 1500 1188.733 Output Total 200 533 Balance 1300 655.733 General: Other (Sedated) HEENT: Mucous membr. moist/pink Neck: Supple Neuro: Other (Sedated) Cardiovascular: Regular rate, Other (1-2/6 syst murmur at LLSB) Respiratory: No respiratory distress, Breath sounds nml Abdomen: Soft Extremities: No edema, Other (R knee wrapped in gauze, no pedal edema) - Results Results: Laboratory Results WBC 16.7 x10^3/uL (4.8-10.8) H 05/10/18 04:35 RBC 3.29 10^6/uL (4.20-5.40) L 05/10/18 04:35 Hgb 9.1 g/dL (12.0-16.0) L 05/10/18 04:35 Hct 28.0 % (37.0-47.0) L 05/10/18 04:35 MCV 85.1 fL (81.0-99.0) 05/10/18 04:35 MCH 27.8 pg (27.0-31.0) 05/10/18 04:35 MCHC 32.7 g/dL (32.0-36.0) 05/10/18 04:35 RDW 15.2 % (12.0-15.0) H 05/10/18 04:35 Plt Count 248 10^3/uL (130-450) 05/10/18 04:35 MPV 8.0 fL (7.9-10.8) 05/10/18 04:35 Neut # (Auto) 13.6 10^3/uL (1.5-6.6) H 05/10/18 04:35 Lymph # (Auto) 1.5 10^3/uL (1.5-3.5) 05/10/18 04:35 [place] # (Auto) 1.6 10^3/uL (0.0-1.0) H 05/10/18 04:35 Eos # (Auto) 0.0 10^3/uL (0.0-0.7) 05/10/18 04:35 Baso # (Auto) 0.0 10^3/uL (0.0-0.1) 05/10/18 04:35 Absolute Nucleated RBC 0.00 x10^3/uL 05/10/18 04:35 Total Counted 100 05/09/18 19:56 Band Neuts % (Manual) 12 % (0-10) H 05/09/18 19:56 Abnorm Lymph % (Manual) 0 % 05/09/18 19:56 Nucleated RBC % 0.0 /100WBC 05/10/18 04:35 Neutrophils # (Manual) 19.9 10^3/uL (1.5-6.6) H 05/09/18 19:56 Lymphocytes # (Manual) 0.2 10^3/uL (1.5-3.5) L 05/09/18 19:56 Monocytes # (Manual) 2.5 10^3/uL (0.0-1.0) H 05/09/18 19:56 Eosinophils # (Manual) 0.0 10^3/uL (0-0.7) 05/09/18 19:56 Basophils # (Manual) 0.0 10^3/uL (0-0.1) 05/09/18 19:56 Differential Comment MANUAL DIFFERENTIAL 05/09/18 19:56 Manual Slide Review Indicated 05/09/18 19:56 WBC Morphology NORMAL APPEARANCE (NORMAL) 05/09/18 19:56 Platelet Estimate NORMAL (130-450,000) (NORMAL) 05/09/18 19:56 Platelet Morphology NORMAL APPEARANCE (NORMAL) 05/09/18 19:56 RBC Morph Micro Appear NORMAL APPEARANCE (NORMAL) 05/09/18 19:56 Bld Gas Analysis Time 2333 05/09/18 23:25 Sample Site RIGHT RADIAL 05/09/18 23:25 ABG pH 7.27 (7.35-7.45) L 05/09/18 23:25 ABG pCO2 39 mmHg (34-45) 05/09/18 23:25 ABG pO2 193 mmHg (80-100) H* 05/09/18 23:25 ABG HCO3 17.5 mmol/L (22.0-26.0) L 05/09/18 23:25 ABG Total CO2 18.7 MMOL/L (21.0-29.0) L 05/09/18 23:25 ABG O2 Saturation 99 % (94-98) H 05/09/18 23:25 ABG Base Excess -8.7 mmol/L (-2.0-3.0) L 05/09/18 23:25 Tom Test POSITIVE 05/09/18 23:25 Respiration Rate 14 b/min 05/09/18 23:25 O2 Delivery Device VENTILATOR 05/09/18 23:25 Vent Mode SIMV 05/09/18 23:25 FiO2 50.00 05/09/18 23:25 Tidal Volume 500 mL 05/09/18 23:25 PEEP 5 cmH2O 05/09/18 23:25 Pressure Support Vent 10 cmH2O 05/09/18 23:25 Sodium 139 mmol/L (135-145) 05/10/18 04:35 Potassium 2.8 mmol/L (3.5-5.0) L 05/10/18 04:35 Chloride 104 mmol/L (101-111) 05/10/18 04:35 Carbon Dioxide 20 mmol/L (21-32) L 05/10/18 04:35 Anion Gap 15.0 (6-13) H 05/10/18 04:35 BUN 18 mg/dL (6-20) 05/10/18 04:35 Creatinine 1.2 mg/dL (0.4-1.0) H 05/10/18 04:35 Estimated GFR (MDRD) 49 (>89) L 05/10/18 04:35 Glucose 83 mg/dL (70-100) 05/10/18 04:35 Lactic Acid 1.4 mmol/L (0.5-2.2) 05/09/18 19:56 Calcium 7.5 mg/dL (8.5-10.3) L 05/10/18 04:35 Phosphorus 5.4 mg/dL (2.5-4.6) H 05/10/18 04:35 Magnesium 2.2 mg/dL (1.7-2.8) 05/10/18 04:35 Total Bilirubin 1.0 mg/dL (0.2-1.0) 05/09/18 19:56 AST 39 IU/L (10-42) 05/09/18 19:56 ALT 20 IU/L (10-60) 05/09/18 19:56 Alkaline Phosphatase 56 IU/L (42-121) 05/09/18 19:56 Total Creatine Kinase 299 IU/L (22-269) H 05/10/18 04:35 Total Protein 7.0 g/dL (6.7-8.2) 05/09/18 19:56 Albumin 2.9 g/dL (3.2-5.5) L 05/10/18 04:35 Globulin 3.6 g/dL (2.1-4.2) 05/09/18 19:56 Albumin/Globulin Ratio 0.9 (1.0-2.2) L 05/09/18 19:56 Lipase 21 U/L (22-51) L 05/09/18 19:56 Urine Color YELLOW 05/09/18 23:30 Urine Clarity HAZY (CLEAR) 05/09/18 23:30 Urine pH 5.5 PH (5.0-7.5) 05/09/18 23:30 Ur Specific [place] 1.025 (1.002-1.030) 05/09/18 23:30 Urine Protein 30 mg/dL (NEGATIVE) H 05/09/18 23:30 Urine Glucose (UA) NEGATIVE mg/dL (NEGATIVE) 05/09/18 23:30 Urine Ketones 15 mg/dL (NEGATIVE) H 05/09/18 23:30 Urine Occult Blood TRACE-LYSE (NEGATIVE) 05/09/18 23:30 Urine Nitrite NEGATIVE (NEGATIVE) 05/09/18 23:30 Urine Bilirubin NEGATIVE (NEGATIVE) 05/09/18 23:30 Urine Urobilinogen 0.2 (NORMAL) E.U./dL (NORMAL) 05/09/18 23:30 Ur Leukocyte Esterase NEGATIVE (NEGATIVE) 05/09/18 23:30 Urine RBC 0-5 /HPF (0-5) 05/09/18 23:30 Urine WBC 0-3 /HPF (0-5) 05/09/18 23:30 Ur Squamous Epith Cells FEW Squamous (<= Few) 05/09/18 23:30 Amorphous Sediment Moderate /LPF 05/09/18 23:30 Urine Bacteria None Seen /HPF (None Seen) 05/09/18 23:30 Urine Casts 11-25Course Granular /LPF 05/09/18 23:30 Ur Microscopic Review INDICATED 05/09/18 23:30 Urine Culture Comments NOT INDICATED 05/09/18 23:30 Urine HCG, Qual NEGATIVE 05/09/18 23:30 Urine Opiates Screen POSITIVE (NEGATIVE) H 05/09/18 23:30 Ur Oxycodone Screen NEGATIVE (NEGATIVE) 05/09/18 23:30 Urine Methadone Screen NEGATIVE (NEGATIVE) 05/09/18 23:30 Ur Propoxyphene Screen NEGATIVE (NEGATIVE) 05/09/18 23:30 Ur Barbiturates Screen NEGATIVE (NEGATIVE) 05/09/18 23:30 Ur Tricyclics Screen NEGATIVE (NEGATIVE) 05/09/18 23:30 Ur Phencyclidine Scrn NEGATIVE (NEGATIVE) 05/09/18 23:30 Ur Amphetamine Screen POSITIVE (NEGATIVE) H 05/09/18 23:30 U Methamphetamines Scrn POSITIVE (NEGATIVE) H 05/09/18 23:30 U Benzodiazepines Scrn NEGATIVE (NEGATIVE) 05/09/18 23:30 Urine Cocaine Screen NEGATIVE (NEGATIVE) 05/09/18 23:30 U Cannabinoids Screen NEGATIVE (NEGATIVE) 05/09/18 23:30 MRSA Surveill Initial NEGATIVE (NEGATIVE) 05/09/18 22:25 Sepsis Event Note (H) - Evaluation Current Stage of Sepsis: Severe sepsis Possible source of Sepsis: positive: Skin/soft tissue - Sepsis Criteria Sepsis Criteria: Recorded Heart Rate greater than 90 bpm, WBC count greater than 12,000 or less than 4000, SBP less than 90 mmHg
[2018-05-10] MEDS: SODIUM CHLORIDE FLUSH 0.9% 10 ML SYRINGE IVP PRN ×3 (09:15→17:14)
[2018-05-10 09:17] LABS: VBG PH 7.31 (7.31-7.41)
[2018-05-10 09:18] LABS: VBG BASE EXCESS -5.2 mmol/L (-2 - +2); VBG PCO2 42.2 mmHg (41-51); VBG PH 7.31 (7.31-7.41); VBG PO2 65.9 mmHg (25-47); VBG TOTAL CO2 22.1 mmol/L (24-29)
[2018-05-10] MEDS: ENOXAPARIN 40 MG/0.4 ML SYRINGE SUBQ SCH (09:18)
[2018-05-10] MEDS ORDERED: VANCOMYCIN INJ 0.75 GM in SODIUM CHLORIDE 0.9% 250 ML IV SCH (09:30)
[2018-05-10] MEDS: VANCOMYCIN INJ 0.75 GM in SODIUM CHLORIDE 0.9% 250 ML IV SCH ×2 (09:36→20:15)
[2018-05-10] MEDS: HYDROmorphone 2 MG/ML VIAL IVP SCH ×5 (10:27→22:56)
[2018-05-10] MEDS: CHLORHEXIDINE GLUCONATE 15 ML UDC PO SCH ×3 (10:43→22:12)
--- NOTE | 2018-05-10 11:28 | PROVIDER PROGRESS NOTE ---
Subjective - Prog Note Date Prog Note Date: 05/10/18 Prog Note Time: 11:26 - Subjective Pt reports feeling: No change (INtubated and sedated) Objective - Vital Signs/Intake & Output Vital Signs: Vital Signs x48h Temp Pulse Pulse Resp BP Pulse Ox 05/10/18 11:00 90 14 101/74 100 05/10/18 10:00 92 14 107/84 H 100 05/10/18 09:50 92 05/10/18 09:00 36.5 C 95 16 106/79 100 05/10/18 08:15 91 05/10/18 08:00 36.5 C 128 H 26 H 101/75 91 L 05/10/18 04:59 36.7 C 88 15 94/62 100 05/10/18 04:52 87 05/10/18 04:00 89 14 94/63 100 Intake & Output: Intake & Output 05/07/18 05/08/18 05/09/18 05/10/18 23:59 23:59 23:59 23:59 Intake Total 1500 2113.166 Output Total 200 773 Balance 1300 1340.166 - Lab Results Fish Bones: 05/10/18 04:35 05/10/18 04:35 Other Labs: Lab Results x24hrs 05/10/18 05/10/18 05/10/18 Range/Units 09:08 09:08 04:35 WBC (4.8-10.8) x10^3/uL RBC (4.20-5.40) 10^6/uL Hgb (12.0-16.0) g/dL Hct (37.0-47.0) % MCV (81.0-99.0) fL MCH (27.0-31.0) pg MCHC (32.0-36.0) g/dL RDW (12.0-15.0) % Plt Count (130-450) 10^3/uL MPV (7.9-10.8) fL Neut # (Auto) Lymph # (Auto) [place] # (Auto) Eos # (Auto) Baso # (Auto) Absolute Nucleated RBC Total Counted Band Neuts % (Manual) (0 - 10) % Abnorm Lymph % (Manual) % Nucleated RBC % Neutrophils # (Manual) (1.5-6.6) 10^3/uL Lymphocytes # (Manual) (1.5-3.5) 10^3/uL Monocytes # (Manual) (0.0-1.0) 10^3/uL Eosinophils # (Manual) (0-0.7) 10^3/uL Basophils # (Manual) (0-0.1) 10^3/uL Differential Comment Manual Slide Review WBC Morphology (NORMAL) Platelet Estimate (NORMAL) Platelet Morphology (NORMAL) RBC Morph Micro Appear (NORMAL) Bld Gas Analysis Time Sample Site ABG pH (7.35-7.45) ABG pCO2 (34-45) mmHg ABG pO2 (80-100) mmHg ABG HCO3 (22.0-26.0) mmol/L ABG Total CO2 (21.0-29.0) MMOL/L ABG O2 Saturation (94-98) % ABG Base Excess (-2.0-3.0) mmol/L Tom Test VBG pH 7.310 7.310 (7.31-7.41) VBG pCO2 42.2 (41-51) mmHg VBG pO2 65.9 H (25-47) mmHg VBG HCO3 20.8 L (23-28) mmol/L VBG Total CO2 22.1 L (24-29) mmol/L VBG O2 Saturation 92.4 H (60-80) % VBG Base Excess -5.2 L (-2 - +2) mmol/L Ionized Calcium 1.05 L (1.15-1.33) mmol/L Respiration Rate b/min O2 Delivery Device Vent Mode FiO2 Tidal Volume mL PEEP cmH2O Pressure Support Vent cmH2O Sodium (135-145) mmol/L Potassium (3.5-5.0) mmol/L Chloride (101-111) mmol/L Carbon Dioxide (21-32) mmol/L Anion Gap (6-13) BUN (6-20) mg/dL Creatinine (0.4-1.0) mg/dL Estimated GFR (MDRD) (>89) Glucose (70-100) mg/dL Lactic Acid (0.5-2.2) mmol/L Calcium (8.5-10.3) mg/dL Phosphorus 5.4 H (2.5-4.6) mg/dL Magnesium 2.2 (1.7-2.8) mg/dL Total Bilirubin (0.2-1.0) mg/dL AST (10-42) IU/L ALT (10-60) IU/L Alkaline Phosphatase (42-121) IU/L Total Creatine Kinase (22-269) IU/L Total Protein (6.7-8.2) g/dL Albumin (3.2-5.5) g/dL Globulin (2.1-4.2) g/dL Albumin/Globulin Ratio (1.0-2.2) Lipase (22-51) U/L Urine Color Urine Clarity (CLEAR) Urine pH (5.0-7.5) PH Ur Specific [place] (1.002-1.030) Urine Protein (NEGATIVE) mg/dL Urine Glucose (UA) (NEGATIVE) mg/dL Urine Ketones (NEGATIVE) mg/dL Urine Occult Blood (NEGATIVE) Urine Nitrite (NEGATIVE) Urine Bilirubin (NEGATIVE) Urine Urobilinogen (NORMAL) E.U./dL Ur Leukocyte Esterase (NEGATIVE) Urine RBC (0-5) /HPF Urine WBC (0-5) /HPF Ur Squamous Epith Cells (<= Few) Amorphous Sediment /LPF Urine Bacteria (None Seen) /HPF Urine Casts /LPF Ur Microscopic Review Urine Culture Comments Urine HCG, Qual Urine Opiates Screen (NEGATIVE) Ur Oxycodone Screen (NEGATIVE) Urine Methadone Screen (NEGATIVE) Ur Propoxyphene Screen (NEGATIVE) Ur Barbiturates Screen (NEGATIVE) Ur Tricyclics Screen (NEGATIVE) Ur Phencyclidine Scrn (NEGATIVE) Ur Amphetamine Screen (NEGATIVE) U Methamphetamines Scrn (NEGATIVE) U Benzodiazepines Scrn (NEGATIVE) Urine Cocaine Screen (NEGATIVE) U Cannabinoids Screen (NEGATIVE) MRSA Surveill Initial (NEGATIVE) 05/10/18 05/10/18 05/10/18 Range/Units 04:35 04:35 04:35 WBC (4.8-10.8) x10^3/uL RBC (4.20-5.40) 10^6/uL Hgb (12.0-16.0) g/dL Hct (37.0-47.0) % MCV (81.0-99.0) fL MCH (27.0-31.0) pg MCHC (32.0-36.0) g/dL RDW (12.0-15.0) % Plt Count (130-450) 10^3/uL MPV (7.9-10.8) fL Neut # (Auto) Lymph # (Auto) [place] # (Auto) Eos # (Auto) Baso # (Auto) Absolute Nucleated RBC Total Counted Band Neuts % (Manual) (0 - 10) % Abnorm Lymph % (Manual) % Nucleated RBC % Neutrophils # (Manual) (1.5-6.6) 10^3/uL Lymphocytes # (Manual) (1.5-3.5) 10^3/uL Monocytes # (Manual) (0.0-1.0) 10^3/uL Eosinophils # (Manual) (0-0.7) 10^3/uL Basophils # (Manual) (0-0.1) 10^3/uL Differential Comment Manual Slide Review WBC Morphology (NORMAL) Platelet Estimate (NORMAL) Platelet Morphology (NORMAL) RBC Morph Micro Appear (NORMAL) Bld Gas Analysis Time Sample Site ABG pH (7.35-7.45) ABG pCO2 (34-45) mmHg ABG pO2 (80-100) mmHg ABG HCO3 (22.0-26.0) mmol/L ABG Total CO2 (21.0-29.0) MMOL/L ABG O2 Saturation (94-98) % ABG Base Excess (-2.0-3.0) mmol/L Tom Test VBG pH (7.31-7.41) VBG pCO2 (41-51) mmHg VBG pO2 (25-47) mmHg VBG HCO3 (23-28) mmol/L VBG Total CO2 (24-29) mmol/L VBG O2 Saturation (60-80) % VBG Base Excess (-2 - +2) mmol/L Ionized Calcium (1.15-1.33) mmol/L Respiration Rate b/min O2 Delivery Device Vent Mode FiO2 Tidal Volume mL PEEP cmH2O Pressure Support Vent cmH2O Sodium 139 (135-145) mmol/L Potassium 2.8 L (3.5-5.0) mmol/L Chloride 104 (101-111) mmol/L Carbon Dioxide 20 L (21-32) mmol/L Anion Gap 15.0 H (6-13) BUN 18 (6-20) mg/dL Creatinine 1.2 H (0.4-1.0) mg/dL Estimated GFR (MDRD) 49 L (>89) Glucose 83 (70-100) mg/dL Lactic Acid (0.5-2.2) mmol/L Calcium 7.5 L (8.5-10.3) mg/dL Phosphorus (2.5-4.6) mg/dL Magnesium (1.7-2.8) mg/dL Total Bilirubin (0.2-1.0) mg/dL AST (10-42) IU/L ALT (10-60) IU/L Alkaline Phosphatase (42-121) IU/L Total Creatine Kinase 299 H (22-269) IU/L Total Protein (6.7-8.2) g/dL Albumin 2.9 L (3.2-5.5) g/dL Globulin (2.1-4.2) g/dL Albumin/Globulin Ratio (1.0-2.2) Lipase (22-51) U/L Urine Color Urine Clarity (CLEAR) Urine pH (5.0-7.5) PH Ur Specific [place] (1.002-1.030) Urine Protein (NEGATIVE) mg/dL Urine Glucose (UA) (NEGATIVE) mg/dL Urine Ketones (NEGATIVE) mg/dL Urine Occult Blood (NEGATIVE) Urine Nitrite (NEGATIVE) Urine Bilirubin (NEGATIVE) Urine Urobilinogen (NORMAL) E.U./dL Ur Leukocyte Esterase (NEGATIVE) Urine RBC (0-5) /HPF Urine WBC (0-5) /HPF Ur Squamous Epith Cells (<= Few) Amorphous Sediment /LPF Urine Bacteria (None Seen) /HPF Urine Casts /LPF Ur Microscopic Review Urine Culture Comments Urine HCG, Qual Urine Opiates Screen (NEGATIVE) Ur Oxycodone Screen (NEGATIVE) Urine Methadone Screen (NEGATIVE) Ur Propoxyphene Screen (NEGATIVE) Ur Barbiturates Screen (NEGATIVE) Ur Tricyclics Screen (NEGATIVE) Ur Phencyclidine Scrn (NEGATIVE) Ur Amphetamine Screen (NEGATIVE) U Methamphetamines Scrn (NEGATIVE) U Benzodiazepines Scrn (NEGATIVE) Urine Cocaine Screen (NEGATIVE) U Cannabinoids Screen (NEGATIVE) MRSA Surveill Initial (NEGATIVE) 05/10/18 05/09/18 05/09/18 Range/Units 04:35 23:30 23:30 WBC 16.7 H (4.8-10.8) x10^3/uL RBC 3.29 L (4.20-5.40) 10^6/uL Hgb 9.1 L (12.0-16.0) g/dL Hct 28.0 L (37.0-47.0) % MCV 85.1 (81.0-99.0) fL MCH 27.8 (27.0-31.0) pg MCHC 32.7 (32.0-36.0) g/dL RDW 15.2 H (12.0-15.0) % Plt Count 248 (130-450) 10^3/uL MPV 8.0 (7.9-10.8) fL Neut # (Auto) 13.6 H Lymph # (Auto) 1.5 [place] # (Auto) 1.6 H Eos # (Auto) 0.0 Baso # (Auto) 0.0 Absolute Nucleated RBC 0.00 Total Counted Band Neuts % (Manual) (0 - 10) % Abnorm Lymph % (Manual) % Nucleated RBC % 0.0 Neutrophils # (Manual) (1.5-6.6) 10^3/uL Lymphocytes # (Manual) (1.5-3.5) 10^3/uL Monocytes # (Manual) (0.0-1.0) 10^3/uL Eosinophils # (Manual) (0-0.7) 10^3/uL Basophils # (Manual) (0-0.1) 10^3/uL Differential Comment Manual Slide Review WBC Morphology (NORMAL) Platelet Estimate (NORMAL) Platelet Morphology (NORMAL) RBC Morph Micro Appear (NORMAL) Bld Gas Analysis Time Sample Site ABG pH (7.35-7.45) ABG pCO2 (34-45) mmHg ABG pO2 (80-100) mmHg ABG HCO3 (22.0-26.0) mmol/L ABG Total CO2 (21.0-29.0) MMOL/L ABG O2 Saturation (94-98) % ABG Base Excess (-2.0-3.0) mmol/L Tom Test VBG pH (7.31-7.41) VBG pCO2 (41-51) mmHg VBG pO2 (25-47) mmHg VBG HCO3 (23-28) mmol/L VBG Total CO2 (24-29) mmol/L VBG O2 Saturation (60-80) % VBG Base Excess (-2 - +2) mmol/L Ionized Calcium (1.15-1.33) mmol/L Respiration Rate b/min O2 Delivery Device Vent Mode FiO2 Tidal Volume mL PEEP cmH2O Pressure Support Vent cmH2O Sodium (135-145) mmol/L Potassium (3.5-5.0) mmol/L Chloride (101-111) mmol/L Carbon Dioxide (21-32) mmol/L Anion Gap (6-13) BUN (6-20) mg/dL Creatinine (0.4-1.0) mg/dL Estimated GFR (MDRD) (>89) Glucose (70-100) mg/dL Lactic Acid (0.5-2.2) mmol/L Calcium (8.5-10.3) mg/dL Phosphorus (2.5-4.6) mg/dL Magnesium (1.7-2.8) mg/dL Total Bilirubin (0.2-1.0) mg/dL AST (10-42) IU/L ALT (10-60) IU/L Alkaline Phosphatase (42-121) IU/L Total Creatine Kinase (22-269) IU/L Total Protein (6.7-8.2) g/dL Albumin (3.2-5.5) g/dL Globulin (2.1-4.2) g/dL Albumin/Globulin Ratio (1.0-2.2) Lipase (22-51) U/L Urine Color YELLOW Urine Clarity HAZY (CLEAR) Urine pH 5.5 (5.0-7.5) PH Ur Specific [place] 1.025 (1.002-1.030) Urine Protein 30 H (NEGATIVE) mg/dL Urine Glucose (UA) NEGATIVE (NEGATIVE) mg/dL Urine Ketones 15 H (NEGATIVE) mg/dL Urine Occult Blood TRACE-LYSE (NEGATIVE) Urine Nitrite NEGATIVE (NEGATIVE) Urine Bilirubin NEGATIVE (NEGATIVE) Urine Urobilinogen 0.2 (NORMAL) (NORMAL) E.U./dL Ur Leukocyte Esterase NEGATIVE (NEGATIVE) Urine RBC 0-5 (0-5) /HPF Urine WBC 0-3 (0-5) /HPF Ur Squamous Epith Cells FEW Squamous (<= Few) Amorphous Sediment Moderate /LPF Urine Bacteria None Seen (None Seen) /HPF Urine Casts 11-25Course Granular /LPF Ur Microscopic Review INDICATED Urine Culture Comments NOT INDICATED Urine HCG, Qual NEGATIVE Urine Opiates Screen POSITIVE H (NEGATIVE) Ur Oxycodone Screen NEGATIVE (NEGATIVE) Urine Methadone Screen NEGATIVE (NEGATIVE) Ur Propoxyphene Screen NEGATIVE (NEGATIVE) Ur Barbiturates Screen NEGATIVE (NEGATIVE) Ur Tricyclics Screen NEGATIVE (NEGATIVE) Ur Phencyclidine Scrn NEGATIVE (NEGATIVE) Ur Amphetamine Screen POSITIVE H (NEGATIVE) U Methamphetamines Scrn POSITIVE H (NEGATIVE) U Benzodiazepines Scrn NEGATIVE (NEGATIVE) Urine Cocaine Screen NEGATIVE (NEGATIVE) U Cannabinoids Screen NEGATIVE (NEGATIVE) MRSA Surveill Initial (NEGATIVE) 05/09/18 05/09/18 05/09/18 Range/Units 23:25 22:25 19:56 WBC (4.8-10.8) x10^3/uL RBC (4.20-5.40) 10^6/uL Hgb (12.0-16.0) g/dL Hct (37.0-47.0) % MCV (81.0-99.0) fL MCH (27.0-31.0) pg MCHC (32.0-36.0) g/dL RDW (12.0-15.0) % Plt Count (130-450) 10^3/uL MPV (7.9-10.8) fL Neut # (Auto) Lymph # (Auto) [place] # (Auto) Eos # (Auto) Baso # (Auto) Absolute Nucleated RBC Total Counted Band Neuts % (Manual) (0 - 10) % Abnorm Lymph % (Manual) % Nucleated RBC % Neutrophils # (Manual) (1.5-6.6) 10^3/uL Lymphocytes # (Manual) (1.5-3.5) 10^3/uL Monocytes # (Manual) (0.0-1.0) 10^3/uL Eosinophils # (Manual) (0-0.7) 10^3/uL Basophils # (Manual) (0-0.1) 10^3/uL Differential Comment Manual Slide Review WBC Morphology (NORMAL) Platelet Estimate (NORMAL) Platelet Morphology (NORMAL) RBC Morph Micro Appear (NORMAL) Bld Gas Analysis Time 2333 Sample Site RIGHT RADIAL ABG pH 7.27 L (7.35-7.45) ABG pCO2 39 (34-45) mmHg ABG pO2 193 H* (80-100) mmHg ABG HCO3 17.5 L (22.0-26.0) mmol/L ABG Total CO2 18.7 L (21.0-29.0) MMOL/L ABG O2 Saturation 99 H (94-98) % ABG Base Excess -8.7 L (-2.0-3.0) mmol/L Tom Test POSITIVE VBG pH (7.31-7.41) VBG pCO2 (41-51) mmHg VBG pO2 (25-47) mmHg VBG HCO3 (23-28) mmol/L VBG Total CO2 (24-29) mmol/L VBG O2 Saturation (60-80) % VBG Base Excess (-2 - +2) mmol/L Ionized Calcium (1.15-1.33) mmol/L Respiration Rate 14 b/min O2 Delivery Device VENTILATOR Vent Mode SIMV FiO2 50.00 Tidal Volume 500 mL PEEP 5 cmH2O Pressure Support Vent 10 cmH2O Sodium (135-145) mmol/L Potassium (3.5-5.0) mmol/L Chloride (101-111) mmol/L Carbon Dioxide (21-32) mmol/L Anion Gap (6-13) BUN (6-20) mg/dL Creatinine (0.4-1.0) mg/dL Estimated GFR (MDRD) (>89) Glucose (70-100) mg/dL Lactic Acid 1.4 (0.5-2.2) mmol/L Calcium (8.5-10.3) mg/dL Phosphorus (2.5-4.6) mg/dL Magnesium (1.7-2.8) mg/dL Total Bilirubin (0.2-1.0) mg/dL AST (10-42) IU/L ALT (10-60) IU/L Alkaline Phosphatase (42-121) IU/L Total Creatine Kinase (22-269) IU/L Total Protein (6.7-8.2) g/dL Albumin (3.2-5.5) g/dL Globulin (2.1-4.2) g/dL Albumin/Globulin Ratio (1.0-2.2) Lipase (22-51) U/L Urine Color Urine Clarity (CLEAR) Urine pH (5.0-7.5) PH Ur Specific [place] (1.002-1.030) Urine Protein (NEGATIVE) mg/dL Urine Glucose (UA) (NEGATIVE) mg/dL Urine Ketones (NEGATIVE) mg/dL Urine Occult Blood (NEGATIVE) Urine Nitrite (NEGATIVE) Urine Bilirubin (NEGATIVE) Urine Urobilinogen (NORMAL) E.U./dL Ur Leukocyte Esterase (NEGATIVE) Urine RBC (0-5) /HPF Urine WBC (0-5) /HPF Ur Squamous Epith Cells (<= Few) Amorphous Sediment /LPF Urine Bacteria (None Seen) /HPF Urine Casts /LPF Ur Microscopic Review Urine Culture Comments Urine HCG, Qual Urine Opiates Screen (NEGATIVE) Ur Oxycodone Screen (NEGATIVE) Urine Methadone Screen (NEGATIVE) Ur Propoxyphene Screen (NEGATIVE) Ur Barbiturates Screen (NEGATIVE) Ur Tricyclics Screen (NEGATIVE) Ur Phencyclidine Scrn (NEGATIVE) Ur Amphetamine Screen (NEGATIVE) U Methamphetamines Scrn (NEGATIVE) U Benzodiazepines Scrn (NEGATIVE) Urine Cocaine Screen (NEGATIVE) U Cannabinoids Screen (NEGATIVE) MRSA Surveill Initial NEGATIVE (NEGATIVE) 05/09/18 05/09/18 05/09/18 Range/Units 19:56 19:56 18:58 WBC 22.6 H (4.8-10.8) x10^3/uL RBC 3.71 L (4.20-5.40) 10^6/uL Hgb 10.6 L (12.0-16.0) g/dL Hct 31.2 L (37.0-47.0) % MCV 84.3 (81.0-99.0) fL MCH 28.7 (27.0-31.0) pg MCHC 34.0 (32.0-36.0) g/dL RDW 14.8 (12.0-15.0) % Plt Count 286 (130-450) 10^3/uL MPV 7.9 (7.9-10.8) fL Neut # (Auto) Not Reportable Lymph # (Auto) Not Reportable [place] # (Auto) Not Reportable Eos # (Auto) Not Reportable Baso # (Auto) Not Reportable Absolute Nucleated RBC Not Reportable Total Counted 100 Band Neuts % (Manual) 12 H (0 - 10) % Abnorm Lymph % (Manual) 0 % Nucleated RBC % Not Reportable Neutrophils # (Manual) 19.9 H (1.5-6.6) 10^3/uL Lymphocytes # (Manual) 0.2 L (1.5-3.5) 10^3/uL Monocytes # (Manual) 2.5 H (0.0-1.0) 10^3/uL Eosinophils # (Manual) 0.0 (0-0.7) 10^3/uL Basophils # (Manual) 0.0 (0-0.1) 10^3/uL Differential Comment MANUAL DIFFERENTIAL Manual Slide Review Indicated WBC Morphology NORMAL APPEARANCE (NORMAL) Platelet Estimate NORMAL (130-450,000) (NORMAL) Platelet Morphology NORMAL APPEARANCE (NORMAL) RBC Morph Micro Appear NORMAL APPEARANCE (NORMAL) Bld Gas Analysis Time Sample Site ABG pH (7.35-7.45) ABG pCO2 (34-45) mmHg ABG pO2 (80-100) mmHg ABG HCO3 (22.0-26.0) mmol/L ABG Total CO2 (21.0-29.0) MMOL/L ABG O2 Saturation (94-98) % ABG Base Excess (-2.0-3.0) mmol/L Tom Test VBG pH (7.31-7.41) VBG pCO2 (41-51) mmHg VBG pO2 (25-47) mmHg VBG HCO3 (23-28) mmol/L VBG Total CO2 (24-29) mmol/L VBG O2 Saturation (60-80) % VBG Base Excess (-2 - +2) mmol/L Ionized Calcium (1.15-1.33) mmol/L Respiration Rate b/min O2 Delivery Device Vent Mode FiO2 Tidal Volume mL PEEP cmH2O Pressure Support Vent cmH2O Sodium 137 (135-145) mmol/L Potassium 3.1 L (3.5-5.0) mmol/L Chloride 99 L (101-111) mmol/L Carbon Dioxide 24 (21-32) mmol/L Anion Gap 14.0 H (6-13) BUN 14 (6-20) mg/dL Creatinine 1.5 H (0.4-1.0) mg/dL Estimated GFR (MDRD) 38 L (>89) Glucose 66 L (70-100) mg/dL Lactic Acid (0.5-2.2) mmol/L Calcium 8.3 L (8.5-10.3) mg/dL Phosphorus (2.5-4.6) mg/dL Magnesium 1.8 (1.7-2.8) mg/dL Total Bilirubin 1.0 (0.2-1.0) mg/dL AST 39 (10-42) IU/L ALT 20 (10-60) IU/L Alkaline Phosphatase 56 (42-121) IU/L Total Creatine Kinase (22-269) IU/L Total Protein 7.0 (6.7-8.2) g/dL Albumin 3.4 (3.2-5.5) g/dL Globulin 3.6 (2.1-4.2) g/dL Albumin/Globulin Ratio 0.9 L (1.0-2.2) Lipase 21 L (22-51) U/L Urine Color Urine Clarity (CLEAR) Urine pH (5.0-7.5) PH Ur Specific [place] (1.002-1.030) Urine Protein (NEGATIVE) mg/dL Urine Glucose (UA) (NEGATIVE) mg/dL Urine Ketones (NEGATIVE) mg/dL Urine Occult Blood (NEGATIVE) Urine Nitrite (NEGATIVE) Urine Bilirubin (NEGATIVE) Urine Urobilinogen (NORMAL) E.U./dL Ur Leukocyte Esterase (NEGATIVE) Urine RBC (0-5) /HPF Urine WBC (0-5) /HPF Ur Squamous Epith Cells (<= Few) Amorphous Sediment /LPF Urine Bacteria (None Seen) /HPF Urine Casts /LPF Ur Microscopic Review Urine Culture Comments Urine HCG, Qual Urine Opiates Screen (NEGATIVE) Ur Oxycodone Screen (NEGATIVE) Urine Methadone Screen (NEGATIVE) Ur Propoxyphene Screen (NEGATIVE) Ur Barbiturates Screen (NEGATIVE) Ur Tricyclics Screen (NEGATIVE) Ur Phencyclidine Scrn (NEGATIVE) Ur Amphetamine Screen (NEGATIVE) U Methamphetamines Scrn (NEGATIVE) U Benzodiazepines Scrn (NEGATIVE) Urine Cocaine Screen (NEGATIVE) U Cannabinoids Screen (NEGATIVE) MRSA Surveill Initial (NEGATIVE) - Other Results/Comments Other Results/Comments: Exam: Dressing changed over right anterior knee. Serosangious drainage on dressing noted. Minimal active drainage from incisional wound anteriorly. Mild erythem and swelling seen. no lymphangitis. N/V ok distally. Sepsis Event Note (H) - Evaluation Current Stage of Sepsis: Severe sepsis Possible source of Sepsis: positive: Skin/soft tissue - Sepsis Criteria Sepsis Criteria: Recorded Heart Rate greater than 90 bpm, WBC count greater than 12,000 or less than 4000, SBP less than 90 mmHg Assessment/Plan - Problem List (1) Septic prepatellar bursitis of right knee Impression: stable PLAN: Continue minimizing knee motion - keep in knee immobilizer as she wakes up. Continue IV antibiotics, adjusting from cultures as needed. Will rfemove packing from knee wound in 24-36 hours.
--- NOTE | 2018-05-10 12:11 | CONSULTATION NOTE ---
DATE OF SERVICE: 05/10/2018 Physician: Kenneth Mariscal MD REFERRING PHYSICIAN: Dr. Evans Soliman of the Emergency Room Department. HISTORY OF PRESENT ILLNESS: Michelle Lewis is a 47-year-old female who was admitted t the surgical specialty center at [facility] with a septic right knee prepatellar bursitis. She was also admitted because of drug abuse. The patient was admitted to the Medical service and is currently in the ICU where she is on a respirator as she is coming down from her drug abuse. While in the Emergency Room, she had a small incision placed over the prepatellar bursal sac and had the bursitis decompressed and the wound packe d. Also, the patient has been maintained on IV antibiotics for treatment of her septic prepatellar b ursitis. PHYSICAL EXAMINATION: On examination, patient's right knee dressing was removed. We changed her gau ze dressing. There was a moderate amount of serosanguineous drainage in the gauze. Only a slight am ount of continued drainage was noted upon palpation around the prepatellar region. Anterior knee was somewhat erythematous and mildly swollen. No apparent knee effusion was noted. A minimal range of motion was done today because of her current status. LABORATORY DATA: Cultures are still pending. ASSESSMENT: Septic right knee prepatellar bursitis - decompressed currently with wound still packed. Seems to be responding to the IV antibiotics with only mild swelling or erythema around the knee. PLAN: We will keep the packing in place to allow for any further drainage for the next 24-36 hours. We will re-evaluate tomorrow and remove the packing as needed. We will continue to observe her resp onse clinically with the IV antibiotics. As she becomes more awake and is extubated, we will recomme nd her going into a knee immobilizer to minimize active motion to her knee as we treat her infected p repatellar bursitis. TD: 05/10/2018 11:44
[2018-05-10] MEDS ORDERED: CALCIUM GLUCONATE 1,000 MG in SODIUM CHLORIDE 0.9% 50 ML IV ONE (15:00)
[2018-05-10 15:48] LABS: CALCIUM 7.5 mg/dL (8.5-10.3); CREATININE 0.7 mg/dL (0.4-1.0)
[2018-05-10] MEDS: SODIUM CHLORIDE 0.9% 500 ML IV PRN (15:54)
[2018-05-10] MEDS: MIDAZOLAM DRIP 50 MG/100 ML BAG IV SCH (18:08)
[2018-05-10] MEDS: FAMOTIDINE 20 MG/2 ML VIAL IVP SCH (22:10)
[2018-05-11] MEDS: HYDROmorphone 2 MG/ML VIAL IVP SCH ×3 (01:44→07:01)
[2018-05-11] MEDS: SODIUM CHLORIDE FLUSH 0.9% 10 ML SYRINGE IVP SCH ×4 (02:43→20:09)
[2018-05-11] MEDS: D5NS W/20 MEQ KCL 1,000 ML IV SCH ×4 (03:15→21:42)
[2018-05-11] MEDS: SODIUM CHLORIDE FLUSH 0.9% 10 ML SYRINGE IVP PRN ×2 (04:33→20:36)
[2018-05-11 04:42] LABS: ABG BASE EXCESS -0.8 mmol/L (-2.0-3.0); ABG HCO3 23.4 mmol/L (22.0-26.0); ABG OXYGEN SATURATION 98 % (94-98); ABG PCO2 37 mmHg (34-45); ABG PH 7.42 (7.35-7.45); ABG PO2 125 mmHg (80-100); ABG TCO2 24.6 MMOL/L (21.0-29.0)
[2018-05-11 04:43] LABS: ALLEN TEST POSITIVE
[2018-05-11 04:54] LABS: BASOPHILS % (AUTO) 0.3 %; EOSINOPHILS # (AUTO) 0.1 10^3/uL (0.0-0.7); EOSINOPHILS % (AUTO) 0.8 %; HGB - HEMOGLOBIN 8.7 g/dL (12.0-16.0); LYMPHOCYTES # (AUTO) 1.3 10^3/uL (1.5-3.5); LYMPHOCYTES % (AUTO) 14.4 %; MEAN CORPUSCULAR HEMOGLOBIN 27.9 pg (27.0-31.0); MEAN CORPUSCULAR HGB CONC 33.1 g/dL (32.0-36.0); MEAN CORPUSCULAR VOLUME 84.1 fL (81.0-99.0); MEAN PLATELET VOLUME 7.9 fL (7.9-10.8); MONOCYTES % (AUTO) 10.6 %; NEUTROPHILS # (AUTO) 6.8 10^3/uL (1.5-6.6); NEUTROPHILS % (AUTO) 73.9 %; PLT - PLATELET COUNT 255 10^3/uL (130-450); RED BLOOD COUNT 3.11 10^6/uL (4.20-5.40); RED CELL DISTRIBUTION WIDTH 15.5 % (12.0-15.0); WHITE BLOOD COUNT 9.2 x10^3/uL (4.8-10.8)
[2018-05-11 05:12] LABS: CALCIUM 7.6 mg/dL (8.5-10.3); CREATININE 0.7 mg/dL (0.4-1.0); MAGNESIUM 1.8 mg/dL (1.7-2.8); PHOSPHORUS 1.7 mg/dL (2.5-4.6)
[2018-05-11 05:33] LABS: FOLATE 20.52 ng/mL (5.90 - >24.8)
[2018-05-11] MEDS: PIPERACILLIN/TAZOBACTAM 3.375 GM in SODIUM CHLORIDE 0.9% MINIBAG 100 ML IV SCH ×4 (05:38→21:40)
[2018-05-11] MEDS: CHLORHEXIDINE GLUCONATE 15 ML UDC PO SCH ×3 (05:42→22:37)
[2018-05-11 05:50] LABS: ABG HCO3 25.2 mmol/L (22.0-26.0); ABG OXYGEN SATURATION 96 % (94-98); ABG PCO2 38 mmHg (34-45); ABG PH 7.44 (7.35-7.45); ABG PO2 84 mmHg (80-100); ABG TCO2 26.3 MMOL/L (21.0-29.0)
[2018-05-11 05:51] LABS: ALLEN TEST POSITIVE
[2018-05-11] MEDS ORDERED: POTASSIUM PHOSPHATE 15 MMOL in SODIUM CHLORIDE 0.9% 250 ML IV ONE (06:04)
[2018-05-11] MEDS ORDERED: HYDROmorphone 1 MG/ML CARPUJECT IVP SCH ×2 (08:00→08:19)
[2018-05-11 08:19] LABS: VANCOMYCIN,TROUGH 8.6 ug/mL (10.0-20.0)
[2018-05-11] MEDS ORDERED: CARBOXYMETHYLCELLULOSE OPHTH DROPS EACHEYE PRN (08:46)
[2018-05-11] MEDS: FAMOTIDINE 20 MG/2 ML VIAL IVP SCH ×2 (09:01→20:36)
[2018-05-11] MEDS: ENOXAPARIN 40 MG/0.4 ML SYRINGE SUBQ SCH (09:01)
[2018-05-11] MEDS: VANCOMYCIN INJ 0.75 GM in SODIUM CHLORIDE 0.9% 250 ML IV SCH (09:11)
[2018-05-11] MEDS: TOPIRAMATE 25 MG TABLET PO SCH ×2 (13:06→20:37)
--- NOTE | 2018-05-11 13:50 | PROVIDER PROGRESS NOTE ---
Subjective - Prog Note Date Prog Note Date: 05/11/18 Prog Note Time: 13:47 - Subjective Pt reports feeling: Improved (Comfortable in bed) Objective - Vital Signs/Intake & Output Vital Signs: Vital Signs x48h Temp Pulse Pulse Resp BP Pulse Ox 05/11/18 13:00 96 21 107/76 99 05/11/18 12:00 36.6 C 97 22 109/71 99 05/11/18 11:00 102 H 21 106/71 100 05/11/18 09:00 94 23 107/69 100 05/11/18 08:20 37.3 C 94 21 101/68 98 05/11/18 07:43 94 05/11/18 06:58 94 15 92/60 98 05/11/18 06:12 98 Intake & Output: Intake & Output 05/08/18 05/09/18 05/10/18 05/11/18 23:59 23:59 23:59 23:59 Intake Total 1500 3630.077 3059.181 Output Total 200 1436 1260 Balance 1300 2194.077 1799.181 - Lab Results Fish Bones: 05/11/18 04:25 05/11/18 04:25 Other Labs: Lab Results x24hrs 05/11/18 05/11/18 05/11/18 Range/Units 08:00 05:45 05:00 WBC (4.8-10.8) x10^3/uL RBC (4.20-5.40) 10^6/uL Hgb (12.0-16.0) g/dL Hct (37.0-47.0) % MCV (81.0-99.0) fL MCH (27.0-31.0) pg MCHC (32.0-36.0) g/dL RDW (12.0-15.0) % Plt Count (130-450) 10^3/uL MPV (7.9-10.8) fL Neut # (Auto) (1.5-6.6) 10^3/uL Lymph # (Auto) (1.5-3.5) 10^3/uL [place] # (Auto) (0.0-1.0) 10^3/uL Eos # (Auto) (0.0-0.7) 10^3/uL Baso # (Auto) (0.0-0.1) 10^3/uL Absolute Nucleated RBC x10^3/uL Nucleated RBC % /100WBC Bld Gas Analysis Time 0549 Sample Site RIGHT RADIAL ABG pH 7.44 (7.35-7.45) ABG pCO2 38 (34-45) mmHg ABG pO2 84 (80-100) mmHg ABG HCO3 25.2 (22.0-26.0) mmol/L ABG Total CO2 26.3 (21.0-29.0) MMOL/L ABG O2 Saturation 96 (94-98) % ABG Base Excess 1.0 (-2.0-3.0) mmol/L Tom Test POSITIVE Respiration Rate 14 b/min O2 Delivery Device VENTILATOR O2 Liters/Min 21.00 LPM Vent Mode SIMV Tidal Volume 500 mL PEEP cmH2O Sodium (135-145) mmol/L Potassium (3.5-5.0) mmol/L Chloride (101-111) mmol/L Carbon Dioxide (21-32) mmol/L Anion Gap (6-13) BUN (6-20) mg/dL Creatinine (0.4-1.0) mg/dL Estimated GFR (MDRD) (>89) Glucose (70-100) mg/dL Calcium (8.5-10.3) mg/dL Phosphorus (2.5-4.6) mg/dL Magnesium (1.7-2.8) mg/dL Iron (28-170) ug/dL TIBC (250-450) ug/dL % Saturation (20-50) % Transferrin (192-382) mg/dL Albumin 2.3 L (3.2-5.5) g/dL Vitamin B12 (180-914) pg/mL Folate (5.90 - >24.8) ng/mL Last Dose Date 05/10/18 Last Dose Time 2145 Vancomycin Trough 8.6 L (10.0-20.0) ug/mL 05/11/18 05/11/18 05/11/18 Range/Units 04:35 04:25 04:25 WBC 9.2 (4.8-10.8) x10^3/uL RBC 3.11 L (4.20-5.40) 10^6/uL Hgb 8.7 L (12.0-16.0) g/dL Hct 26.2 L (37.0-47.0) % MCV 84.1 (81.0-99.0) fL MCH 27.9 (27.0-31.0) pg MCHC 33.1 (32.0-36.0) g/dL RDW 15.5 H (12.0-15.0) % Plt Count 255 (130-450) 10^3/uL MPV 7.9 (7.9-10.8) fL Neut # (Auto) 6.8 H (1.5-6.6) 10^3/uL Lymph # (Auto) 1.3 L (1.5-3.5) 10^3/uL [place] # (Auto) 1.0 (0.0-1.0) 10^3/uL Eos # (Auto) 0.1 (0.0-0.7) 10^3/uL Baso # (Auto) 0.0 (0.0-0.1) 10^3/uL Absolute Nucleated RBC 0.00 x10^3/uL Nucleated RBC % 0.0 /100WBC Bld Gas Analysis Time 0441 Sample Site LEFT RADIAL ABG pH 7.42 (7.35-7.45) ABG pCO2 37 (34-45) mmHg ABG pO2 125 H (80-100) mmHg ABG HCO3 23.4 (22.0-26.0) mmol/L ABG Total CO2 24.6 (21.0-29.0) MMOL/L ABG O2 Saturation 98 (94-98) % ABG Base Excess -0.8 (-2.0-3.0) mmol/L Tom Test POSITIVE Respiration Rate 14 b/min O2 Delivery Device VENTILATOR O2 Liters/Min 30.00 LPM Vent Mode SIMV Tidal Volume 500 mL PEEP 5 cmH2O Sodium (135-145) mmol/L Potassium (3.5-5.0) mmol/L Chloride (101-111) mmol/L Carbon Dioxide (21-32) mmol/L Anion Gap (6-13) BUN (6-20) mg/dL Creatinine (0.4-1.0) mg/dL Estimated GFR (MDRD) (>89) Glucose (70-100) mg/dL Calcium (8.5-10.3) mg/dL Phosphorus (2.5-4.6) mg/dL Magnesium (1.7-2.8) mg/dL Iron (28-170) ug/dL TIBC (250-450) ug/dL % Saturation (20-50) % Transferrin (192-382) mg/dL Albumin (3.2-5.5) g/dL Vitamin B12 1099 H (180-914) pg/mL Folate 20.52 (5.90 - >24.8) ng/mL Last Dose Date Last Dose Time Vancomycin Trough (10.0-20.0) ug/mL 05/11/18 05/10/18 Range/Units 04:25 15:06 WBC (4.8-10.8) x10^3/uL RBC (4.20-5.40) 10^6/uL Hgb (12.0-16.0) g/dL Hct (37.0-47.0) % MCV (81.0-99.0) fL MCH (27.0-31.0) pg MCHC (32.0-36.0) g/dL RDW (12.0-15.0) % Plt Count (130-450) 10^3/uL MPV (7.9-10.8) fL Neut # (Auto) (1.5-6.6) 10^3/uL Lymph # (Auto) (1.5-3.5) 10^3/uL [place] # (Auto) (0.0-1.0) 10^3/uL Eos # (Auto) (0.0-0.7) 10^3/uL Baso # (Auto) (0.0-0.1) 10^3/uL Absolute Nucleated RBC x10^3/uL Nucleated RBC % /100WBC Bld Gas Analysis Time Sample Site ABG pH (7.35-7.45) ABG pCO2 (34-45) mmHg ABG pO2 (80-100) mmHg ABG HCO3 (22.0-26.0) mmol/L ABG Total CO2 (21.0-29.0) MMOL/L ABG O2 Saturation (94-98) % ABG Base Excess (-2.0-3.0) mmol/L Tom Test Respiration Rate b/min O2 Delivery Device O2 Liters/Min LPM Vent Mode Tidal Volume mL PEEP cmH2O Sodium 142 139 (135-145) mmol/L Potassium 3.9 3.9 (3.5-5.0) mmol/L Chloride 112 H 110 (101-111) mmol/L Carbon Dioxide 23 24 (21-32) mmol/L Anion Gap 7.0 5.0 L (6-13) BUN 11 16 (6-20) mg/dL Creatinine 0.7 0.7 (0.4-1.0) mg/dL Estimated GFR (MDRD) 90 90 (>89) Glucose 132 H 102 H (70-100) mg/dL Calcium 7.6 L 7.5 L (8.5-10.3) mg/dL Phosphorus 1.7 L (2.5-4.6) mg/dL Magnesium 1.8 (1.7-2.8) mg/dL Iron 16 L (28-170) ug/dL TIBC 182 L (250-450) ug/dL % Saturation 9 L (20-50) % Transferrin 130 L (192-382) mg/dL Albumin (3.2-5.5) g/dL Vitamin B12 (180-914) pg/mL Folate (5.90 - >24.8) ng/mL Last Dose Date Last Dose Time Vancomycin Trough (10.0-20.0) ug/mL - Other Results/Comments Other Results/Comments: EXAM: Right knee: Dressing removed. Anterior knee: less swelling and erythema. ROM: 20-30 degrees with mild pain; no effusion noted. No lymphangitis. Packing removed. Minimal drainage noted from wound now. Knee redressed Sepsis Event Note (H) - Evaluation Current Stage of Sepsis: Severe sepsis Possible source of Sepsis: positive: Skin/soft tissue - Sepsis Criteria Sepsis Criteria: Recorded Heart Rate greater than 90 bpm, WBC count greater than 12,000 or less than 4000, SBP less than 90 mmHg Assessment/Plan - Problem List (1) Septic prepatellar bursitis of right knee Impression: improved PLAN: Continue antibiotics. Keep knee immobilized with brace.
--- NOTE | 2018-05-11 14:10 | PROVIDER PROGRESS NOTE ---
Assessment/Plan - Problem List (1) Septic infrapatellar bursitis of right knee Assessment/Plan: Will start iv Ketalorac for pain. Continue iv antibiotics. Appreciate Orthopedics following along and managing. (2) Cellulitis of right leg Assessment/Plan: Blood cx are neg to date. Continue iv antibiotics. (3) Anemia Qualifiers: Anemia type: iron deficiency Assessment/Plan: Pt to start po Iron replacement when able to take po diet. (4) Heroin withdrawal Assessment/Plan: iv Versed was titrated to off, she CPAPd and had good ventilator weaning parameters and was extubated thuis am. She still appears groggy, but answers and is cooperative. Social Work may see her for her social needs. (5) Methamphetamine use Assessment/Plan: as above (6) JUAN FRANCISCO (acute kidney injury) Assessment/Plan: Resolved after iv hydration 2 days. Follow BMP daily. (7) Hypokalemia Assessment/Plan: Resolved with K replacement (8) Cardiac murmur Assessment/Plan: Echo done yesterday showed no significant valvukar regurg, no areas suspiscious for vegetation. The murmur may have been from anemia and high cardiac output. (9) Shock Assessment/Plan: Resolved with crystalloid replacement iv. - Current Meds Current Meds: Current Medications Generic Name Dose Route Start Last Admin Trade Name Freq PRN Reason Stop Dose Admin Carboxymethylcellulose 1 drops 05/11/18 08:46 05/11/18 08:54 Refresh 1% Ophth Drops EACHEYE 1 drops PRN PRN Administration Dry Eye Chlorhexidine Gluconate 5 ml 05/10/18 10:00 05/11/18 05:42 Peridex PO 5 ml TID NAVID Administration Enoxaparin Sodium 40 mg 05/10/18 09:00 05/11/18 09:01 Lovenox SUBQ 40 mg DAILY NAVID Administration Famotidine 20 mg 05/10/18 21:00 05/11/18 09:01 Pepcid IVP 20 mg BID NAVID Administration Piperacillin Sod/Tazobactam 100 mls @ 200 mls/hr 05/10/18 04:00 05/11/18 11:00 Sod 3.375 gm/ Sodium Chloride IV Infused Q6H NAVID Infusion Potassium Chloride/Dextrose/Sod Cl 1,000 mls @ 125 mls/hr 05/10/18 08:00 05/11/18 12:24 IV 125 mls/hr .Q8H NAVID Administration Sodium Chloride 500 mls @ 20 mls/hr 05/10/18 15:28 05/10/18 18:14 Normal Saline 0.9% IV 20 mls/hr Q24H PRN Infusion TKO RATE Sodium Chloride 10 ml 05/10/18 01:00 05/11/18 09:17 Normal Saline Flush 0.9% IVP 10 ml 0100,0900,1700 NAVID Administration Sodium Chloride 10 ml 05/09/18 21:06 05/11/18 04:33 Normal Saline Flush 0.9% IVP 30 ml PRN PRN Administration NEEDED PER PROVIDER ORDERS Topiramate 150 mg 05/11/18 08:41 05/11/18 13:06 Topamax PO Not Given QPM NAVID - Lab Result Fish Bone Diagrams: 05/11/18 04:25 05/11/18 04:25 - Additional Planning My Orders: My Active Orders 05/10/18 15:28 Sodium Chloride 0.9% [Normal Saline 0.9%] 500 ml IV Q24H 05/10/18 21:00 Famotidine [Pepcid] 20 mg IVP BID 05/11/18 07:50 Miscellaenous Nursing Order [RC] ONCE 05/11/18 08:41 Topiramate [Topamax] 150 mg PO QPM 05/11/18 08:46 Carboxymethylcellulose 1% Opht [Refresh 1% Ophth Drops] 1 drops EACHEYE PRN PRN 05/11/18 14:06 Ketorolac Inj (15Mg) [Toradol Inj (15Mg)] 15 mg IVP Q6HR PRN 05/11/18 Lunch DIET [Soft Mechanical Diet] [DIET] 05/12/18 05:00 BMP - BASIC METABOLIC PANEL [CHEM] DAILYLAB CBC - COMP BLD CT W/AUTO DIFF [HEME] DAILYLAB 05/13/18 05:00 BMP - BASIC METABOLIC PANEL [CHEM] DAILYLAB CBC - COMP BLD CT W/AUTO DIFF [HEME] DAILYLAB 05/14/18 05:00 BMP - BASIC METABOLIC PANEL [CHEM] DAILYLAB CBC - COMP BLD CT W/AUTO DIFF [HEME] DAILYLAB Subjective - Subjective Nursing Reports: Other (Lethargic, follows commands, even intubated) Objective Vital Signs: Vital Signs - 24 hr 05/10/18 05/10/18 05/10/18 15:00 15:30 16:00 Temperature 36.4 C L Heart Rate 92 Heart Rate [ 93 94 Monitoring electrodes] Respiratory 17 15 Rate Blood Pressure 97/73 102/71 [Left Brachial artery] O2 Saturation 100 100 05/10/18 05/10/18 05/10/18 17:00 19:00 20:15 Temperature Heart Rate 92 Heart Rate [ 89 82 Monitoring electrodes] Respiratory 14 16 Rate Blood Pressure 86/56 L 84/61 L [Left Brachial artery] O2 Saturation 100 100 05/10/18 05/10/18 05/10/18 21:00 22:56 23:00 Temperature 36.6 C Heart Rate 100 Heart Rate [ 98 100 Monitoring electrodes] Respiratory 19 14 Rate Blood Pressure 97/68 95/61 [Left Brachial artery] O2 Saturation 100 100 05/11/18 05/11/18 05/11/18 00:57 01:01 02:03 Temperature 36.5 C 36.6 C Heart Rate 100 97 Heart Rate [ 102 H Monitoring electrodes] Respiratory 15 14 Rate Blood Pressure 104/60 [Left Brachial artery] O2 Saturation 99 100 05/11/18 05/11/18 05/11/18 03:00 04:24 05:00 Temperature Heart Rate 97 Heart Rate [ 98 99 Monitoring electrodes] Respiratory 14 18 Rate Blood Pressure 94/60 105/72 [Left Brachial artery] O2 Saturation 99 98 05/11/18 05/11/18 05/11/18 06:12 06:58 07:43 Temperature Heart Rate 98 94 Heart Rate [ 94 Monitoring electrodes] Respiratory 15 Rate Blood Pressure 92/60 [Left Brachial artery] O2 Saturation 98 05/11/18 05/11/18 05/11/18 08:20 09:00 11:00 Temperature 37.3 C Heart Rate Heart Rate [ 94 94 102 H Monitoring electrodes] Respiratory 21 23 21 Rate Blood Pressure 101/68 107/69 106/71 [Left Brachial artery] O2 Saturation 98 100 100 05/11/18 05/11/18 12:00 13:00 Temperature 36.6 C Heart Rate Heart Rate [ 97 96 Monitoring electrodes] Respiratory 22 21 Rate Blood Pressure 109/71 107/76 [Left Brachial artery] O2 Saturation 99 99 Oxygen O2 Source Room air I&O (Last 24 Hrs): Intake and Output Totals x24h 05/09/18 05/10/18 05/11/18 23:59 23:59 23:59 Intake Total 1500 3630.077 3314.181 Output Total 200 1436 1260 Balance 1300 2194.077 2054.181 General: Other (On vent) HEENT: Mucous membr. moist/pink Neck: Supple Neuro: Other (lethargic) Cardiovascular: Regular rate Respiratory: No respiratory distress Abdomen: Soft Extremities: No edema, Other (R knee bandaged) - Results Results: Laboratory Results WBC 9.2 x10^3/uL (4.8-10.8) 05/11/18 04:25 RBC 3.11 10^6/uL (4.20-5.40) L 05/11/18 04:25 Hgb 8.7 g/dL (12.0-16.0) L 05/11/18 04:25 Hct 26.2 % (37.0-47.0) L 05/11/18 04:25 MCV 84.1 fL (81.0-99.0) 05/11/18 04:25 MCH 27.9 pg (27.0-31.0) 05/11/18 04:25 MCHC 33.1 g/dL (32.0-36.0) 05/11/18 04:25 RDW 15.5 % (12.0-15.0) H 05/11/18 04:25 Plt Count 255 10^3/uL (130-450) 05/11/18 04:25 MPV 7.9 fL (7.9-10.8) 05/11/18 04:25 Neut # (Auto) 6.8 10^3/uL (1.5-6.6) H 05/11/18 04:25 Lymph # (Auto) 1.3 10^3/uL (1.5-3.5) L 05/11/18 04:25 [place] # (Auto) 1.0 10^3/uL (0.0-1.0) 05/11/18 04:25 Eos # (Auto) 0.1 10^3/uL (0.0-0.7) 05/11/18 04:25 Baso # (Auto) 0.0 10^3/uL (0.0-0.1) 05/11/18 04:25 Absolute Nucleated RBC 0.00 x10^3/uL 05/11/18 04:25 Total Counted 100 05/09/18 19:56 Band Neuts % (Manual) 12 % (0-10) H 05/09/18 19:56 Abnorm Lymph % (Manual) 0 % 05/09/18 19:56 Nucleated RBC % 0.0 /100WBC 05/11/18 04:25 Neutrophils # (Manual) 19.9 10^3/uL (1.5-6.6) H 05/09/18 19:56 Lymphocytes # (Manual) 0.2 10^3/uL (1.5-3.5) L 05/09/18 19:56 Monocytes # (Manual) 2.5 10^3/uL (0.0-1.0) H 05/09/18 19:56 Eosinophils # (Manual) 0.0 10^3/uL (0-0.7) 05/09/18 19:56 Basophils # (Manual) 0.0 10^3/uL (0-0.1) 05/09/18 19:56 Differential Comment MANUAL DIFFERENTIAL 05/09/18 19:56 Manual Slide Review Indicated 05/09/18 19:56 WBC Morphology NORMAL APPEARANCE (NORMAL) 05/09/18 19:56 Platelet Estimate NORMAL (130-450,000) (NORMAL) 05/09/18 19:56 Platelet Morphology NORMAL APPEARANCE (NORMAL) 05/09/18 19:56 RBC Morph Micro Appear NORMAL APPEARANCE (NORMAL) 05/09/18 19:56 Bld Gas Analysis Time 0549 05/11/18 05:45 Sample Site RIGHT RADIAL 05/11/18 05:45 ABG pH 7.44 (7.35-7.45) 05/11/18 05:45 ABG pCO2 38 mmHg (34-45) 05/11/18 05:45 ABG pO2 84 mmHg (80-100) 05/11/18 05:45 ABG HCO3 25.2 mmol/L (22.0-26.0) 05/11/18 05:45 ABG Total CO2 26.3 MMOL/L (21.0-29.0) 05/11/18 05:45 ABG O2 Saturation 96 % (94-98) 05/11/18 05:45 ABG Base Excess 1.0 mmol/L (-2.0-3.0) 05/11/18 05:45 Tom Test POSITIVE 05/11/18 05:45 VBG pH 7.310 (7.31-7.41) 05/10/18 09:08 VBG pCO2 42.2 mmHg (41-51) 05/10/18 09:08 VBG pO2 65.9 mmHg (25-47) H 05/10/18 09:08 VBG HCO3 20.8 mmol/L (23-28) L 05/10/18 09:08 VBG Total CO2 22.1 mmol/L (24-29) L 05/10/18 09:08 VBG O2 Saturation 92.4 % (60-80) H 05/10/18 09:08 VBG Base Excess -5.2 mmol/L (-2 - +2) L 05/10/18 09:08 Ionized Calcium 1.05 mmol/L (1.15-1.33) L 05/10/18 09:08 Respiration Rate 14 b/min 05/11/18 05:45 O2 Delivery Device VENTILATOR 05/11/18 05:45 O2 Liters/Min 21.00 LPM 05/11/18 05:45 Vent Mode SIMV 05/11/18 05:45 FiO2 50.00 05/09/18 23:25 Tidal Volume 500 mL 05/11/18 05:45 PEEP 5 cmH2O 05/11/18 04:35 Pressure Support Vent 10 cmH2O 05/09/18 23:25 Sodium 142 mmol/L (135-145) 05/11/18 04:25 Potassium 3.9 mmol/L (3.5-5.0) 05/11/18 04:25 Chloride 112 mmol/L (101-111) H 05/11/18 04:25 Carbon Dioxide 23 mmol/L (21-32) 05/11/18 04:25 Anion Gap 7.0 (6-13) 05/11/18 04:25 BUN 11 mg/dL (6-20) 05/11/18 04:25 Creatinine 0.7 mg/dL (0.4-1.0) 05/11/18 04:25 Estimated GFR (MDRD) 90 (>89) 05/11/18 04:25 Glucose 132 mg/dL (70-100) H 05/11/18 04:25 Lactic Acid 1.4 mmol/L (0.5-2.2) 05/09/18 19:56 Calcium 7.6 mg/dL (8.5-10.3) L 05/11/18 04:25 Phosphorus 1.7 mg/dL (2.5-4.6) L 05/11/18 04:25 Magnesium 1.8 mg/dL (1.7-2.8) 05/11/18 04:25 Iron 16 ug/dL (28-170) L 05/11/18 04:25 TIBC 182 ug/dL (250-450) L 05/11/18 04:25 % Saturation 9 % (20-50) L 05/11/18 04:25 Transferrin 130 mg/dL (192-382) L 05/11/18 04:25 Total Bilirubin 1.0 mg/dL (0.2-1.0) 05/09/18 19:56 AST 39 IU/L (10-42) 05/09/18 19:56 ALT 20 IU/L (10-60) 05/09/18 19:56 Alkaline Phosphatase 56 IU/L (42-121) 05/09/18 19:56 Total Creatine Kinase 299 IU/L (22-269) H 05/10/18 04:35 Total Protein 7.0 g/dL (6.7-8.2) 05/09/18 19:56 Albumin 2.3 g/dL (3.2-5.5) L 05/11/18 05:00 Globulin 3.6 g/dL (2.1-4.2) 05/09/18 19:56 Albumin/Globulin Ratio 0.9 (1.0-2.2) L 05/09/18 19:56 Lipase 21 U/L (22-51) L 05/09/18 19:56 Vitamin B12 1099 pg/mL (180-914) H 05/11/18 04:25 Folate 20.52 ng/mL (5.90 - >24.8) 05/11/18 04:25 Urine Color YELLOW 05/09/18 23:30 Urine Clarity HAZY (CLEAR) 05/09/18 23:30 Urine pH 5.5 PH (5.0-7.5) 05/09/18 23:30 Ur Specific [place] 1.025 (1.002-1.030) 05/09/18 23:30 Urine Protein 30 mg/dL (NEGATIVE) H 05/09/18 23:30 Urine Glucose (UA) NEGATIVE mg/dL (NEGATIVE) 05/09/18 23:30 Urine Ketones 15 mg/dL (NEGATIVE) H 05/09/18 23:30 Urine Occult Blood TRACE-LYSE (NEGATIVE) 05/09/18 23:30 Urine Nitrite NEGATIVE (NEGATIVE) 05/09/18 23:30 Urine Bilirubin NEGATIVE (NEGATIVE) 05/09/18 23:30 Urine Urobilinogen 0.2 (NORMAL) E.U./dL (NORMAL) 05/09/18 23:30 Ur Leukocyte Esterase NEGATIVE (NEGATIVE) 05/09/18 23:30 Urine RBC 0-5 /HPF (0-5) 05/09/18 23:30 Urine WBC 0-3 /HPF (0-5) 05/09/18 23:30 Ur Squamous Epith Cells FEW Squamous (<= Few) 05/09/18 23:30 Amorphous Sediment Moderate /LPF 05/09/18 23:30 Urine Bacteria None Seen /HPF (None Seen) 05/09/18 23:30 Urine Casts 11-25Course Granular /LPF 05/09/18 23:30 Ur Microscopic Review INDICATED 05/09/18 23:30 Urine Culture Comments NOT INDICATED 05/09/18 23:30 Urine HCG, Qual NEGATIVE 05/09/18 23:30 Last Dose Date 05/10/18 05/11/18 08:00 Last Dose Time 21405/11/18 08:00 Vancomycin Trough 8.6 ug/mL (10.0-20.0) L 05/11/18 08:00 Urine Opiates Screen POSITIVE (NEGATIVE) H 05/09/18 23:30 Ur Oxycodone Screen NEGATIVE (NEGATIVE) 05/09/18 23:30 Urine Methadone Screen NEGATIVE (NEGATIVE) 05/09/18 23:30 Ur Propoxyphene Screen NEGATIVE (NEGATIVE) 05/09/18 23:30 Ur Barbiturates Screen NEGATIVE (NEGATIVE) 05/09/18 23:30 Ur Tricyclics Screen NEGATIVE (NEGATIVE) 05/09/18 23:30 Ur Phencyclidine Scrn NEGATIVE (NEGATIVE) 05/09/18 23:30 Ur Amphetamine Screen POSITIVE (NEGATIVE) H 05/09/18 23:30 U Methamphetamines Scrn POSITIVE (NEGATIVE) H 05/09/18 23:30 U Benzodiazepines Scrn NEGATIVE (NEGATIVE) 05/09/18 23:30 Urine Cocaine Screen NEGATIVE (NEGATIVE) 05/09/18 23:30 U Cannabinoids Screen NEGATIVE (NEGATIVE) 05/09/18 23:30 MRSA Surveill Initial NEGATIVE (NEGATIVE) 05/09/18 22:25 Sepsis Event Note (H) - Evaluation Current Stage of Sepsis: Severe sepsis Possible source of Sepsis: positive: Skin/soft tissue - Sepsis Criteria Sepsis Criteria: Recorded Heart Rate greater than 90 bpm, WBC count greater than 12,000 or less than 4000, SBP less than 90 mmHg
[2018-05-11] MEDS: KETOROLAC 15 MG/ML VIAL IVP PRN ×2 (14:22→20:08)
[2018-05-11] MEDS: ACETAMINOPHEN/CODEINE 300 MG/30 MG TABLET PO PRN ×2 (17:22→20:56)
[2018-05-11] MEDS: FERROUS GLUCONATE 324 MG TABLET PO SCH (17:35)
[2018-05-11] MEDS: SODIUM CHLORIDE 0.9% 500 ML IV PRN (17:37)
[2018-05-11] MEDS: VANCOMYCIN INJ 1 GM in SODIUM CHLORIDE 0.9% 250 ML IV SCH (20:36)
[2018-05-12] MEDS: ACETAMINOPHEN/CODEINE 300 MG/30 MG TABLET PO PRN ×6 (00:30→23:54)
[2018-05-12] MEDS: KETOROLAC 15 MG/ML VIAL IVP PRN ×4 (02:59→19:46)
[2018-05-12] MEDS: SODIUM CHLORIDE FLUSH 0.9% 10 ML SYRINGE IVP PRN ×3 (03:00→20:55)
[2018-05-12] MEDS: PIPERACILLIN/TAZOBACTAM 3.375 GM in SODIUM CHLORIDE 0.9% MINIBAG 100 ML IV SCH ×4 (03:43→21:00)
[2018-05-12 05:37] LABS: BASOPHILS # (AUTO) 0.1 10^3/uL (0.0-0.1); BASOPHILS % (AUTO) 0.8 %; EOSINOPHILS # (AUTO) 0.2 10^3/uL (0.0-0.7); EOSINOPHILS % (AUTO) 2.9 %; HGB - HEMOGLOBIN 8.7 g/dL (12.0-16.0); LYMPHOCYTES # (AUTO) 2.1 10^3/uL (1.5-3.5); LYMPHOCYTES % (AUTO) 29.4 %; MEAN CORPUSCULAR HEMOGLOBIN 27.9 pg (27.0-31.0); MEAN CORPUSCULAR VOLUME 84.7 fL (81.0-99.0); MEAN PLATELET VOLUME 8.2 fL (7.9-10.8); MONOCYTES # (AUTO) 0.5 10^3/uL (0.0-1.0); MONOCYTES % (AUTO) 6.5 %; NEUTROPHILS # (AUTO) 4.3 10^3/uL (1.5-6.6); NEUTROPHILS % (AUTO) 60.4 %; PLT - PLATELET COUNT 288 10^3/uL (130-450); RED CELL DISTRIBUTION WIDTH 15.2 % (12.0-15.0); WHITE BLOOD COUNT 7.2 x10^3/uL (4.8-10.8)
[2018-05-12 05:39] LABS: CALCIUM 7.4 mg/dL (8.5-10.3); CREATININE 0.6 mg/dL (0.4-1.0)
[2018-05-12] MEDS: D5NS W/20 MEQ KCL 1,000 ML IV SCH ×2 (05:41→16:20)
[2018-05-12] MEDS: CHLORHEXIDINE GLUCONATE 15 ML UDC PO SCH ×3 (05:51→19:51)
[2018-05-12] MEDS: VANCOMYCIN INJ 1 GM in SODIUM CHLORIDE 0.9% 250 ML IV SCH ×2 (08:49→19:49)
[2018-05-12] MEDS: FAMOTIDINE 20 MG/2 ML VIAL IVP SCH ×2 (08:50→20:08)
[2018-05-12 09:00] LABS: VBG PH 7.404 (7.31-7.41)
[2018-05-12] MEDS: SODIUM CHLORIDE FLUSH 0.9% 10 ML SYRINGE IVP SCH ×3 (10:12→16:20)
[2018-05-12] MEDS: FERROUS GLUCONATE 324 MG TABLET PO SCH (10:12)
[2018-05-12] MEDS: ENOXAPARIN 40 MG/0.4 ML SYRINGE SUBQ SCH (10:12)
--- NOTE | 2018-05-12 10:32 | PROVIDER PROGRESS NOTE ---
Assessment/Plan - Problem List (1) Septic infrapatellar bursitis of right knee Assessment/Plan: The blood culture is neg thus far. The wound culture grew skin organisms (will be further ID's per [facility]), t herefore they are Staph and Strep species that are not resistant organisms, per Pit Shovel Operator. The duration of treatment therefore will depend on if she has spread to bone (osteomyelitis). Plan - Obtain MRI of R knee. Continue empiric iv antibiotics and the duration and type of antibiotics will be elucidated later today. Continue knee brace and other recommendations per Orthopedics. Dr Mariscal may need to repeat debridement in OR tomorrow under anesthesia. She will moved out of ICU today. (2) Anemia Qualifiers: Anemia type: iron deficiency Assessment/Plan: Continue Iron replacement started yesterday. Follow CBC, if Hgb <7, will transfuse. (3) Methamphetamine use Assessment/Plan: She may still be in the withdrawal (fstigue symptoms) stage. Increase activity as tolerated. PT will be ordered to start today. Social Work is working with her parents. She will moved out of ICU today. (4) Heroin withdrawal Assessment/Plan: Resolved She will moved out of ICU today. (5) History of seizures Assessment/Plan: Patient is back on her oral Topamax. (6) JUAN FRANCISCO (acute kidney injury) Assessment/Plan: Resolved - Current Meds Current Meds: Current Medications Generic Name Dose Route Start Last Admin Trade Name Freq PRN Reason Stop Dose Admin Acetaminophen/Codeine Phosphate 1 tab 05/11/18 16:03 05/12/18 10:13 Tylenol #3 PO 1 tab Q4HR PRN Administration PAIN Carboxymethylcellulose 1 drops 05/11/18 08:46 05/11/18 08:54 Refresh 1% Ophth Drops EACHEYE 1 drops PRN PRN Administration Dry Eye Chlorhexidine Gluconate 5 ml 05/10/18 10:00 05/12/18 05:51 Peridex PO Not Given TID NAVID Enoxaparin Sodium 40 mg 05/10/18 09:00 05/12/18 10:12 Lovenox SUBQ 40 mg DAILY NAVID Administration Famotidine 20 mg 05/10/18 21:00 05/12/18 08:50 Pepcid IVP 20 mg BID NAVID Administration Ferrous Gluconate 324 mg 05/11/18 18:00 05/12/18 10:12 Fergon PO 324 mg DAILYWM NAVID Administration Piperacillin Sod/Tazobactam 100 mls @ 200 mls/hr 05/10/18 04:00 05/12/18 10:10 Sod 3.375 gm/ Sodium Chloride IV Infused Q6H NAVID Infusion Potassium Chloride/Dextrose/Sod Cl 1,000 mls @ 125 mls/hr 05/10/18 08:00 05/12/18 07:01 IV 125 mls/hr .Q8H NAVID Infusion Sodium Chloride 500 mls @ 20 mls/hr 05/10/18 15:28 05/12/18 07:02 Normal Saline 0.9% IV 20 mls/hr Q24H PRN Infusion TKO RATE Vancomycin HCl 1 gm/ Sodium 250 mls @ 167 mls/hr 05/11/18 21:00 05/12/18 10:26 Chloride IV Infused Q12H NAVID Infusion Ketorolac Tromethamine 15 mg 05/11/18 14:06 05/12/18 08:59 Toradol Inj (15mg) IVP 05/16/18 14:05 15 mg Q6HR PRN Administration PAIN Sodium Chloride 10 ml 05/10/18 01:00 05/12/18 10:12 Normal Saline Flush 0.9% IVP 10 ml 0100,0900,1700 NAVID Administration Sodium Chloride 10 ml 05/09/18 21:06 05/12/18 04:48 Normal Saline Flush 0.9% IVP 20 ml PRN PRN Administration NEEDED PER PROVIDER ORDERS Topiramate 150 mg 05/11/18 08:41 05/11/18 20:37 Topamax PO 150 mg QPM NAVID Administration - Lab Result Fish Bone Diagrams: 05/12/18 04:55 05/12/18 04:55 - Additional Planning My Orders: My Active Orders 05/11/18 14:06 Ketorolac Inj (15Mg) [Toradol Inj (15Mg)] 15 mg IVP Q6HR PRN 05/11/18 15:22 Activity Orders [RC] Q2HR 05/11/18 16:03 Acetaminophen/Cod 300/30 [Tylenol #3] 1 tab PO Q4HR PRN 05/11/18 18:00 Ferrous Gluconate [Fergon] 324 mg PO DAILYWM 05/11/18 Lunch DIET [Soft Mechanical Diet] [DIET] 05/12/18 Evaluate and Treat OT [OT] Routine Evaluate and Treat PT [PT] Routine 05/12/18 10:27 KNEE WO - RT [MRI] Routine 05/13/18 05:00 BMP - BASIC METABOLIC PANEL [CHEM] DAILYLAB CBC - COMP BLD CT W/AUTO DIFF [HEME] DAILYLAB 05/14/18 05:00 BMP - BASIC METABOLIC PANEL [CHEM] DAILYLAB CBC - COMP BLD CT W/AUTO DIFF [HEME] DAILYLAB Subjective - Subjective Patient Reports: Resting Comfortably, Other (c/o fatigue, can't get rest because of interuptions. Had severe pain when Dr Mariscal was changing dressing.) Objective Vital Signs: Vital Signs - 24 hr 05/11/18 05/11/18 05/11/18 11:00 12:00 13:00 Temperature 36.6 C Heart Rate [ 102 H 97 96 Monitoring electrodes] Respiratory 21 22 21 Rate Blood Pressure 106/71 109/71 107/76 [Left Brachial artery] O2 Saturation 100 99 99 05/11/18 05/11/18 05/11/18 14:00 15:00 16:00 Temperature 36.7 C Heart Rate [ 91 96 77 Monitoring electrodes] Respiratory 19 19 19 Rate Blood Pressure 117/80 100/64 108/72 [Left Brachial artery] O2 Saturation 99 99 100 05/11/18 05/11/18 05/11/18 17:00 19:00 20:11 Temperature 37 C Heart Rate [ 90 89 84 Monitoring electrodes] Respiratory 19 19 18 Rate Blood Pressure 102/73 94/62 101/71 [Left Brachial artery] O2 Saturation 100 99 98 05/11/18 05/11/18 05/11/18 21:00 22:00 23:00 Temperature Heart Rate [ 88 86 84 Monitoring electrodes] Respiratory 17 17 19 Rate Blood Pressure 109/79 103/70 103/74 [Left Brachial artery] O2 Saturation 100 99 99 05/12/18 05/12/18 05/12/18 00:00 01:00 03:00 Temperature 37 C Heart Rate [ 88 84 75 Monitoring electrodes] Respiratory 17 20 16 Rate Blood Pressure 102/74 107/80 102/72 [Left Brachial artery] O2 Saturation 98 99 99 05/12/18 05/12/18 05/12/18 04:00 05:00 07:00 Temperature 36.7 C 36.7 C Heart Rate [ 75 74 78 Monitoring electrodes] Respiratory 12 19 11 L Rate Blood Pressure 104/80 106/80 119/86 H [Left Brachial artery] O2 Saturation 99 99 99 05/12/18 05/12/18 05/12/18 08:00 09:00 10:00 Temperature Heart Rate [ 73 73 77 Monitoring electrodes] Respiratory 11 L 12 16 Rate Blood Pressure 112/79 119/79 [Left Brachial artery] O2 Saturation 100 100 100 Oxygen O2 Source Room air I&O (Last 24 Hrs): Intake and Output Totals x24h 05/10/18 05/11/18 05/12/18 23:59 23:59 23:59 Intake Total 3630.077 6262.514 2282.917 Output Total 1436 1655 1150 Balance 2194.077 4607.514 1132.917 General: Alert, Oriented x3 HEENT: Mucous membr. moist/pink Neck: Supple, No JVD Neuro: Non Focal Cardiovascular: Regular rate, No murmurs Respiratory: No respiratory distress, Other (Diminished throughout) Abdomen: Soft, No tenderness Extremities: Other (R knee has a central deep small wound, 3x3 mm approx, clean and pink, near it is a pustule. No further redness or swelling of thigh or lee.) - Results Results: Laboratory Results WBC 7.2 x10^3/uL (4.8-10.8) 05/12/18 04:55 RBC 3.10 10^6/uL (4.20-5.40) L 05/12/18 04:55 Hgb 8.7 g/dL (12.0-16.0) L 05/12/18 04:55 Hct 26.3 % (37.0-47.0) L 05/12/18 04:55 MCV 84.7 fL (81.0-99.0) 05/12/18 04:55 MCH 27.9 pg (27.0-31.0) 05/12/18 04:55 MCHC 33.0 g/dL (32.0-36.0) 05/12/18 04:55 RDW 15.2 % (12.0-15.0) H 05/12/18 04:55 Plt Count 288 10^3/uL (130-450) 05/12/18 04:55 MPV 8.2 fL (7.9-10.8) 05/12/18 04:55 Neut # (Auto) 4.3 10^3/uL (1.5-6.6) 05/12/18 04:55 Lymph # (Auto) 2.1 10^3/uL (1.5-3.5) 05/12/18 04:55 [place] # (Auto) 0.5 10^3/uL (0.0-1.0) 05/12/18 04:55 Eos # (Auto) 0.2 10^3/uL (0.0-0.7) 05/12/18 04:55 Baso # (Auto) 0.1 10^3/uL (0.0-0.1) 05/12/18 04:55 Absolute Nucleated RBC 0.00 x10^3/uL 05/12/18 04:55 Total Counted 100 05/09/18 19:56 Band Neuts % (Manual) 12 % (0-10) H 05/09/18 19:56 Abnorm Lymph % (Manual) 0 % 05/09/18 19:56 Nucleated RBC % 0.0 /100WBC 05/12/18 04:55 Neutrophils # (Manual) 19.9 10^3/uL (1.5-6.6) H 05/09/18 19:56 Lymphocytes # (Manual) 0.2 10^3/uL (1.5-3.5) L 05/09/18 19:56 Monocytes # (Manual) 2.5 10^3/uL (0.0-1.0) H 05/09/18 19:56 Eosinophils # (Manual) 0.0 10^3/uL (0-0.7) 05/09/18 19:56 Basophils # (Manual) 0.0 10^3/uL (0-0.1) 05/09/18 19:56 Differential Comment MANUAL DIFFERENTIAL 05/09/18 19:56 Manual Slide Review Indicated 05/09/18 19:56 WBC Morphology NORMAL APPEARANCE (NORMAL) 05/09/18 19:56 Platelet Estimate NORMAL (130-450,000) (NORMAL) 05/09/18 19:56 Platelet Morphology NORMAL APPEARANCE (NORMAL) 05/09/18 19:56 RBC Morph Micro Appear NORMAL APPEARANCE (NORMAL) 05/09/18 19:56 Bld Gas Analysis Time 0549 05/11/18 05:45 Sample Site RIGHT RADIAL 05/11/18 05:45 ABG pH 7.44 (7.35-7.45) 05/11/18 05:45 ABG pCO2 38 mmHg (34-45) 05/11/18 05:45 ABG pO2 84 mmHg (80-100) 05/11/18 05:45 ABG HCO3 25.2 mmol/L (22.0-26.0) 05/11/18 05:45 ABG Total CO2 26.3 MMOL/L (21.0-29.0) 05/11/18 05:45 ABG O2 Saturation 96 % (94-98) 05/11/18 05:45 ABG Base Excess 1.0 mmol/L (-2.0-3.0) 05/11/18 05:45 Tom Test POSITIVE 05/11/18 05:45 VBG pH 7.404 (7.31-7.41) 05/12/18 08:05 VBG pCO2 42.2 mmHg (41-51) 05/10/18 09:08 VBG pO2 65.9 mmHg (25-47) H 05/10/18 09:08 VBG HCO3 20.8 mmol/L (23-28) L 05/10/18 09:08 VBG Total CO2 22.1 mmol/L (24-29) L 05/10/18 09:08 VBG O2 Saturation 92.4 % (60-80) H 05/10/18 09:08 VBG Base Excess -5.2 mmol/L (-2 - +2) L 05/10/18 09:08 Ionized Calcium 1.05 mmol/L (1.15-1.33) L 05/12/18 08:05 Respiration Rate 14 b/min 05/11/18 05:45 O2 Delivery Device VENTILATOR 05/11/18 05:45 O2 Liters/Min 21.00 LPM 05/11/18 05:45 Vent Mode SIMV 05/11/18 05:45 FiO2 50.00 05/09/18 23:25 Tidal Volume 500 mL 05/11/18 05:45 PEEP 5 cmH2O 05/11/18 04:35 Pressure Support Vent 10 cmH2O 05/09/18 23:25 Sodium 139 mmol/L (135-145) 05/12/18 04:55 Potassium 3.7 mmol/L (3.5-5.0) 05/12/18 04:55 Chloride 111 mmol/L (101-111) 05/12/18 04:55 Carbon Dioxide 22 mmol/L (21-32) 05/12/18 04:55 Anion Gap 6.0 (6-13) 05/12/18 04:55 BUN 5 mg/dL (6-20) L 05/12/18 04:55 Creatinine 0.6 mg/dL (0.4-1.0) 05/12/18 04:55 Estimated GFR (MDRD) 108 (>89) 05/12/18 04:55 Glucose 109 mg/dL (70-100) H 05/12/18 04:55 Lactic Acid 1.4 mmol/L (0.5-2.2) 05/09/18 19:56 Calcium 7.4 mg/dL (8.5-10.3) L 05/12/18 04:55 Phosphorus 1.7 mg/dL (2.5-4.6) L 05/11/18 04:25 Magnesium 1.8 mg/dL (1.7-2.8) 05/11/18 04:25 Iron 16 ug/dL (28-170) L 05/11/18 04:25 TIBC 182 ug/dL (250-450) L 05/11/18 04:25 % Saturation 9 % (20-50) L 05/11/18 04:25 Transferrin 130 mg/dL (192-382) L 05/11/18 04:25 Total Bilirubin 1.0 mg/dL (0.2-1.0) 05/09/18 19:56 AST 39 IU/L (10-42) 05/09/18 19:56 ALT 20 IU/L (10-60) 05/09/18 19:56 Alkaline Phosphatase 56 IU/L (42-121) 05/09/18 19:56 Total Creatine Kinase 299 IU/L (22-269) H 05/10/18 04:35 Total Protein 7.0 g/dL (6.7-8.2) 05/09/18 19:56 Albumin 2.1 g/dL (3.2-5.5) L 05/12/18 04:55 Globulin 3.6 g/dL (2.1-4.2) 05/09/18 19:56 Albumin/Globulin Ratio 0.9 (1.0-2.2) L 05/09/18 19:56 Lipase 21 U/L (22-51) L 05/09/18 19:56 Vitamin B12 1099 pg/mL (180-914) H 05/11/18 04:25 Folate 20.52 ng/mL (5.90 - >24.8) 05/11/18 04:25 Urine Color YELLOW 05/09/18 23:30 Urine Clarity HAZY (CLEAR) 05/09/18 23:30 Urine pH 5.5 PH (5.0-7.5) 05/09/18 23:30 Ur Specific [place] 1.025 (1.002-1.030) 05/09/18 23:30 Urine Protein 30 mg/dL (NEGATIVE) H 05/09/18 23:30 Urine Glucose (UA) NEGATIVE mg/dL (NEGATIVE) 05/09/18 23:30 Urine Ketones 15 mg/dL (NEGATIVE) H 05/09/18 23:30 Urine Occult Blood TRACE-LYSE (NEGATIVE) 05/09/18 23:30 Urine Nitrite NEGATIVE (NEGATIVE) 05/09/18 23:30 Urine Bilirubin NEGATIVE (NEGATIVE) 05/09/18 23:30 Urine Urobilinogen 0.2 (NORMAL) E.U./dL (NORMAL) 05/09/18 23:30 Ur Leukocyte Esterase NEGATIVE (NEGATIVE) 05/09/18 23:30 Urine RBC 0-5 /HPF (0-5) 05/09/18 23:30 Urine WBC 0-3 /HPF (0-5) 05/09/18 23:30 Ur Squamous Epith Cells FEW Squamous (<= Few) 05/09/18 23:30 Amorphous Sediment Moderate /LPF 05/09/18 23:30 Urine Bacteria None Seen /HPF (None Seen) 05/09/18 23:30 Urine Casts 11-25Course Granular /LPF 05/09/18 23:30 Ur Microscopic Review INDICATED 05/09/18 23:30 Urine Culture Comments NOT INDICATED 05/09/18 23:30 Urine HCG, Qual NEGATIVE 05/09/18 23:30 Last Dose Date 05/10/18 05/11/18 08:00 Last Dose Time 214405/11/18 08:00 Vancomycin Trough 8.6 ug/mL (10.0-20.0) L 05/11/18 08:00 Urine Opiates Screen POSITIVE (NEGATIVE) H 05/09/18 23:30 Ur Oxycodone Screen NEGATIVE (NEGATIVE) 05/09/18 23:30 Urine Methadone Screen NEGATIVE (NEGATIVE) 05/09/18 23:30 Ur Propoxyphene Screen NEGATIVE (NEGATIVE) 05/09/18 23:30 Ur Barbiturates Screen NEGATIVE (NEGATIVE) 05/09/18 23:30 Ur Tricyclics Screen NEGATIVE (NEGATIVE) 05/09/18 23:30 Ur Phencyclidine Scrn NEGATIVE (NEGATIVE) 05/09/18 23:30 Ur Amphetamine Screen POSITIVE (NEGATIVE) H 05/09/18 23:30 U Methamphetamines Scrn POSITIVE (NEGATIVE) H 05/09/18 23:30 U Benzodiazepines Scrn NEGATIVE (NEGATIVE) 05/09/18 23:30 Urine Cocaine Screen NEGATIVE (NEGATIVE) 05/09/18 23:30 U Cannabinoids Screen NEGATIVE (NEGATIVE) 05/09/18 23:30 MRSA Surveill Initial NEGATIVE (NEGATIVE) 05/09/18 22:25 Sepsis Event Note (H) - Evaluation Current Stage of Sepsis: Severe sepsis Possible source of Sepsis: positive: Skin/soft tissue - Sepsis Criteria Sepsis Criteria: Recorded Heart Rate greater than 90 bpm, WBC count greater than 12,000 or less than 4000, SBP less than 90 mmHg
[2018-05-12] MEDS ORDERED: HYDROmorphone 1 MG/ML CARPUJECT ONE (12:51)
--- NOTE | 2018-05-12 12:54 | PROVIDER PROGRESS NOTE ---
Subjective - Prog Note Date Prog Note Date: 05/12/18 Prog Note Time: 12:52 - Subjective Pt reports feeling: Improved Objective - Vital Signs/Intake & Output Vital Signs: Vital Signs x48h Temp Pulse Pulse Resp BP BP Pulse Ox 05/12/18 12:00 72 118/72 05/12/18 10:00 77 16 119/79 100 05/12/18 09:00 73 12 100 05/12/18 08:00 73 11 L 112/79 100 05/12/18 07:00 36.7 C 78 11 L 119/86 H 99 05/12/18 05:00 36.7 C 74 19 106/80 99 Intake & Output: Intake & Output 05/09/18 05/10/18 05/11/18 05/12/18 23:59 23:59 23:59 23:59 Intake Total 1500 3630.077 6262.514 2282.917 Output Total 200 1436 1655 1850 Balance 1300 2194.077 4607.514 432.917 - Lab Results Fish Bones: 05/12/18 04:55 05/12/18 04:55 Other Labs: Lab Results x24hrs 05/12/18 05/12/18 05/12/18 Range/Units 08:05 04:55 04:55 WBC (4.8-10.8) x10^3/uL RBC (4.20-5.40) 10^6/uL Hgb (12.0-16.0) g/dL Hct (37.0-47.0) % MCV (81.0-99.0) fL MCH (27.0-31.0) pg MCHC (32.0-36.0) g/dL RDW (12.0-15.0) % Plt Count (130-450) 10^3/uL MPV (7.9-10.8) fL Neut # (Auto) (1.5-6.6) 10^3/uL Lymph # (Auto) (1.5-3.5) 10^3/uL [place] # (Auto) (0.0-1.0) 10^3/uL Eos # (Auto) (0.0-0.7) 10^3/uL Baso # (Auto) (0.0-0.1) 10^3/uL Absolute Nucleated RBC x10^3/uL Nucleated RBC % /100WBC VBG pH 7.404 (7.31-7.41) Ionized Calcium 1.05 L (1.15-1.33) mmol/L Sodium 139 (135-145) mmol/L Potassium 3.7 (3.5-5.0) mmol/L Chloride 111 (101-111) mmol/L Carbon Dioxide 22 (21-32) mmol/L Anion Gap 6.0 (6-13) BUN 5 L (6-20) mg/dL Creatinine 0.6 (0.4-1.0) mg/dL Estimated GFR (MDRD) 108 (>89) Glucose 109 H (70-100) mg/dL Calcium 7.4 L (8.5-10.3) mg/dL Albumin 2.1 L (3.2-5.5) g/dL 05/12/18 Range/Units 04:55 WBC 7.2 (4.8-10.8) x10^3/uL RBC 3.10 L (4.20-5.40) 10^6/uL Hgb 8.7 L (12.0-16.0) g/dL Hct 26.3 L (37.0-47.0) % MCV 84.7 (81.0-99.0) fL MCH 27.9 (27.0-31.0) pg MCHC 33.0 (32.0-36.0) g/dL RDW 15.2 H (12.0-15.0) % Plt Count 288 (130-450) 10^3/uL MPV 8.2 (7.9-10.8) fL Neut # (Auto) 4.3 (1.5-6.6) 10^3/uL Lymph # (Auto) 2.1 (1.5-3.5) 10^3/uL [place] # (Auto) 0.5 (0.0-1.0) 10^3/uL Eos # (Auto) 0.2 (0.0-0.7) 10^3/uL Baso # (Auto) 0.1 (0.0-0.1) 10^3/uL Absolute Nucleated RBC 0.00 x10^3/uL Nucleated RBC % 0.0 /100WBC VBG pH (7.31-7.41) Ionized Calcium (1.15-1.33) mmol/L Sodium (135-145) mmol/L Potassium (3.5-5.0) mmol/L Chloride (101-111) mmol/L Carbon Dioxide (21-32) mmol/L Anion Gap (6-13) BUN (6-20) mg/dL Creatinine (0.4-1.0) mg/dL Estimated GFR (MDRD) (>89) Glucose (70-100) mg/dL Calcium (8.5-10.3) mg/dL Albumin (3.2-5.5) g/dL - Other Results/Comments Other Results/Comments: EXAM: Dressing over anterior knee changed. Small amount of purulence noted at opening of wound. Wound q-tipped with 1/2 strengthen H2O2. Bursa sac explored - minimal drainage seen. Anterior knee with less swelling and erythema; also less tender. Sepsis Event Note (H) - Evaluation Current Stage of Sepsis: Severe sepsis Possible source of Sepsis: positive: Skin/soft tissue - Sepsis Criteria Sepsis Criteria: Recorded Heart Rate greater than 90 bpm, WBC count greater than 12,000 or less than 4000, SBP less than 90 mmHg Assessment/Plan - Problem List (1) Septic prepatellar bursitis of right knee Impression: Improved PLAN: Continue with antibiotics and local wound care. If wound worsens, consider debridement and wash out in OR.
[2018-05-12] MEDS: HYDROmorphone 2 MG/ML VIAL IVP PRN ×3 (12:55→20:55)
[2018-05-12] MEDS ORDERED: GADOBUTROL 7.5 MMOL/7.5 ML VIAL ONE (15:21)
[2018-05-12] MEDS ORDERED: GADOBUTROL 7.5 MMOL/7.5 ML VIAL IVP ONE (15:42)
--- NOTE | 2018-05-12 16:56 | MRI Report ---
Reason: r/o osteo Procedure Date: 05/12/2018 Accession Number: [id number] / [id number] Procedure: MRI - Knee RT W/WO CPT Code: FULL RESULT: EXAM: RIGHT KNEE MRI WITHOUT AND WITH CONTRAST EXAM DATE: 05/12/2018 04:22 PM. CLINICAL HISTORY: Rule out osteomyelitis. Knee pain. COMPARISON: None. TECHNIQUE: Multiplanar, multisequence T1-weighted and fluid-sensitive sequences of the knee before and after administration of intravenous contrast. IV contrast: 7.5 mL Gadavist given IV, no reaction. Other: None. FINDINGS: Bones: There is a small amount of increased T2 signal at the anteromedial femoral condyle and intercondylar groove. These areas show faint enhancement. Patella appears unremarkable. Articular Cartilage: Unremarkable. Medial Meniscus: The medial meniscus is intact. Lateral Meniscus: The lateral meniscus is intact. Cruciate Ligaments: The anterior and posterior cruciate ligaments are intact. Collateral Ligaments: The medial collateral and lateral collateral ligamentous structures are intact. Tendons: The quadriceps, patellar, semimembranosus, and popliteus tendons are unremarkable. Musculature: No edema or fatty atrophy. Other: Moderate sized joint effusion. Some enhancement of the slightly thickened synovium, indicative of moderate synovitis. No loose bodies. No popliteal cyst. The medial and lateral retinacula are intact. There is extensive subcutaneous edema and swelling over the anterior aspect of the knee and the soft tissue defect in this location. No abscess or drainable fluid collections. No subjacent involvement of Hoffa's fat pad, the patellar tendon, or the patella. IMPRESSION: 1. No convincing evidence for osteomyelitis. 2. Moderate-sized joint effusion. Some enhancement of the slightly thickened synovium, indicative of moderate synovitis. 3. Subcutaneous edema and swelling, cellulitis is present, focal soft tissue defect seen over the anterior knee. No drainable fluid collection or abscesses. RADIA MUSCULOSKELETAL RADIOLOGY SECTION
[2018-05-12] MEDS: TOPIRAMATE 25 MG TABLET PO SCH (20:08)
[2018-05-13] MEDS: SODIUM CHLORIDE FLUSH 0.9% 10 ML SYRINGE IVP SCH ×2 (00:09→18:21)
[2018-05-13] MEDS: SODIUM CHLORIDE FLUSH 0.9% 10 ML SYRINGE IVP PRN ×2 (00:10→00:29)
[2018-05-13] MEDS: HYDROmorphone 2 MG/ML VIAL IVP PRN ×10 (00:25→22:44)
[2018-05-13] MEDS: KETOROLAC 15 MG/ML VIAL IVP PRN ×3 (02:04→20:38)
[2018-05-13] MEDS: D5NS W/20 MEQ KCL 1,000 ML IV SCH ×4 (02:20→21:12)
[2018-05-13] MEDS: ACETAMINOPHEN/CODEINE 300 MG/30 MG TABLET PO PRN ×3 (04:05→12:22)
[2018-05-13] MEDS: PIPERACILLIN/TAZOBACTAM 3.375 GM in SODIUM CHLORIDE 0.9% MINIBAG 100 ML IV SCH ×4 (04:06→22:11)
[2018-05-13] MEDS: CHLORHEXIDINE GLUCONATE 15 ML UDC PO SCH ×2 (05:30→12:36)
[2018-05-13] MEDS ORDERED: SODIUM CHLORIDE FLUSH 0.9% 10 ML SYRINGE IVP PRN ×2 (06:35→16:36)
[2018-05-13 07:11] LABS: BASOPHILS # (AUTO) 0.1 10^3/uL (0.0-0.1); EOSINOPHILS # (AUTO) 0.3 10^3/uL (0.0-0.7); EOSINOPHILS % (AUTO) 4.6 %; HGB - HEMOGLOBIN 8.4 g/dL (12.0-16.0); LYMPHOCYTES # (AUTO) 2.3 10^3/uL (1.5-3.5); LYMPHOCYTES % (AUTO) 30.9 %; MEAN CORPUSCULAR HEMOGLOBIN 27.6 pg (27.0-31.0); MEAN CORPUSCULAR VOLUME 83.7 fL (81.0-99.0); MEAN PLATELET VOLUME 8.1 fL (7.9-10.8); MONOCYTES # (AUTO) 0.5 10^3/uL (0.0-1.0); MONOCYTES % (AUTO) 6.8 %; NEUTROPHILS # (AUTO) 4.3 10^3/uL (1.5-6.6); NEUTROPHILS % (AUTO) 56.7 %; PLT - PLATELET COUNT 294 10^3/uL (130-450); RED BLOOD COUNT 3.05 10^6/uL (4.20-5.40); RED CELL DISTRIBUTION WIDTH 15.6 % (12.0-15.0); WHITE BLOOD COUNT 7.6 x10^3/uL (4.8-10.8)
[2018-05-13 07:12] LABS: CALCIUM 7.9 mg/dL (8.5-10.3); CREATININE 0.5 mg/dL (0.4-1.0)
[2018-05-13] MEDS: FERROUS GLUCONATE 324 MG TABLET PO SCH (07:54)
[2018-05-13] MEDS: FAMOTIDINE 20 MG/2 ML VIAL IVP SCH ×2 (07:55→20:57)
[2018-05-13] MEDS: POLYETHYLENE GLYCOL 3350 17 GM PACKET PO SCH (08:13)
[2018-05-13] MEDS: ENOXAPARIN 40 MG/0.4 ML SYRINGE SUBQ SCH (08:13)
[2018-05-13] MEDS: VANCOMYCIN INJ 1 GM in SODIUM CHLORIDE 0.9% 250 ML IV SCH ×3 (08:14→23:32)
[2018-05-13] MEDS ORDERED: SENNA 8.6 MG TABLET PO SCH (09:00)
[2018-05-13] MEDS ORDERED: DOCUSATE SODIUM 250 MG CAPSULE PO SCH (09:00)
--- NOTE | 2018-05-13 11:34 | PROVIDER PROGRESS NOTE ---
Subjective - Prog Note Date Prog Note Date: 05/13/18 Prog Note Time: 11:32 - Subjective Pt reports feeling: Improved Objective - Vital Signs/Intake & Output Vital Signs: Vital Signs x48h Temp Pulse Resp BP Pulse Ox 05/13/18 08:42 36.4 C L 61 18 106/66 99 Intake & Output: Intake & Output 05/10/18 05/11/18 05/12/18 05/13/18 23:59 23:59 23:59 23:59 Intake Total 3630.077 6262.514 4040.583 1710 Output Total 1436 1655 2750 Balance 2194.077 4607.514 1818.077 5923 - Lab Results Fish Bones: 05/13/18 06:50 05/13/18 06:50 Other Labs: Lab Results x24hrs 05/13/18 05/13/18 Range/Units 06:50 06:50 WBC 7.6 (4.8-10.8) x10^3/uL RBC 3.05 L (4.20-5.40) 10^6/uL Hgb 8.4 L (12.0-16.0) g/dL Hct 25.5 L (37.0-47.0) % MCV 83.7 (81.0-99.0) fL MCH 27.6 (27.0-31.0) pg MCHC 33.0 (32.0-36.0) g/dL RDW 15.6 H (12.0-15.0) % Plt Count 294 (130-450) 10^3/uL MPV 8.1 (7.9-10.8) fL Neut # (Auto) 4.3 (1.5-6.6) 10^3/uL Lymph # (Auto) 2.3 (1.5-3.5) 10^3/uL [place] # (Auto) 0.5 (0.0-1.0) 10^3/uL Eos # (Auto) 0.3 (0.0-0.7) 10^3/uL Baso # (Auto) 0.1 (0.0-0.1) 10^3/uL Absolute Nucleated RBC 0.00 x10^3/uL Nucleated RBC % 0.0 /100WBC Sodium 135 (135-145) mmol/L Potassium 3.7 (3.5-5.0) mmol/L Chloride 110 (101-111) mmol/L Carbon Dioxide 21 (21-32) mmol/L Anion Gap 4.0 L (6-13) BUN 5 L (6-20) mg/dL Creatinine 0.5 (0.4-1.0) mg/dL Estimated GFR (MDRD) 133 (>89) Glucose 102 H (70-100) mg/dL Calcium 7.9 L (8.5-10.3) mg/dL - Other Results/Comments Other Results/Comments: EXAM: Wound inspected. Shallow, small, open anterior wound with minimal surrounding swelling or erythema. Several small superficial pustules. No significant prepatellar fluid/abscess. Less local tenderness. PROM = 30 degrees without pain. Sepsis Event Note (H) - Evaluation Current Stage of Sepsis: Severe sepsis Possible source of Sepsis: positive: Skin/soft tissue - Sepsis Criteria Sepsis Criteria: Recorded Heart Rate greater than 90 bpm, WBC count greater than 12,000 or less than 4000, SBP less than 90 mmHg Assessment/Plan - Problem List (1) Septic prepatellar bursitis of right knee Impression: Improved PLAN: Switch to oral antibiotics. Teach outpt local wound care: warm soaks, f ollowed by damp wet to dry gauze dressing daily. Wean slowly off knee brace over the next week. On discharge, follow up in orthopedic clinic in 1 week.
[2018-05-13] MEDS: SODIUM CHLORIDE 0.9% 500 ML IV PRN (12:23)
--- NOTE | 2018-05-13 13:21 | PROVIDER PROGRESS NOTE ---
Assessment/Plan - Problem List (1) Septic infrapatellar bursitis of right knee Assessment/Plan: There are 3 pustular lesions surrounding the central wound which appears healthy. Will start warm wet soaks bid to express the putules. The cultures grew out skin organisms, therefore not resistant bacteria. Today is Day #4 to iv antibiotics and will start po antibiotics tomorrow for a10-14 day more course. (2) Anemia Qualifiers: Anemia type: iron deficiency Assessment/Plan: Continue Iron replacement (3) Methamphetamine use Assessment/Plan: She only tried Meth recently (4) Heroin withdrawal Assessment/Plan: She reported having stopped heroine several days before this admission and did not thonl she was in withdrawal at admission. She is interested and seems honest, to be drug-free again. Social work is working on this with her. (5) History of seizures Assessment/Plan: Pt on her home Topamax dose - Current Meds Current Meds: Current Medications Generic Name Dose Route Start Last Admin Trade Name Freq PRN Reason Stop Dose Admin Acetaminophen/Codeine Phosphate 1 tab 05/11/18 16:03 05/13/18 12:22 Tylenol #3 PO 1 tab Q4HR PRN Administration PAIN Carboxymethylcellulose 1 drops 05/11/18 08:46 05/11/18 08:54 Refresh 1% Ophth Drops EACHEYE 1 drops PRN PRN Administration Dry Eye Chlorhexidine Gluconate 5 ml 05/10/18 10:00 05/13/18 12:36 Peridex PO Not Given TID NAVID Docusate Sodium 250 - 500 mg 05/13/18 09:00 05/13/18 09:58 Colace 250mg Capsule PO Not Given DAILY NAVID Enoxaparin Sodium 40 mg 05/10/18 09:00 05/13/18 08:13 Lovenox SUBQ 40 mg DAILY NAVID Administration Famotidine 20 mg 05/10/18 21:00 05/13/18 07:55 Pepcid IVP 20 mg BID NAVID Administration Ferrous Gluconate 324 mg 05/11/18 18:00 05/13/18 07:54 Fergon PO 324 mg DAILYWM NAVID Administration Heparin Sodium (Beef Lung) 30 - 50 unit 05/13/18 06:35 05/13/18 06:44 IVP 50 unit PRN PRN Administration Central Line Protocol (<24 hr) Hydromorphone HCl 2 mg 05/12/18 12:41 05/13/18 12:49 Dilaudid (Vial) IVP 2 mg Q2H PRN Administration PAIN Piperacillin Sod/Tazobactam 100 mls @ 200 mls/hr 05/10/18 04:00 05/13/18 11:05 Sod 3.375 gm/ Sodium Chloride IV Infused Q6H NAVID Infusion Potassium Chloride/Dextrose/Sod Cl 1,000 mls @ 125 mls/hr 05/10/18 08:00 05/13/18 12:23 IV 125 mls/hr .Q8H NAVID Administration Sodium Chloride 500 mls @ 20 mls/hr 05/10/18 15:28 05/13/18 12:23 Normal Saline 0.9% IV 20 mls/hr Q24H PRN Administration TKO RATE Ketorolac Tromethamine 15 mg 05/11/18 14:06 05/13/18 07:55 Toradol Inj (15mg) IVP 05/16/18 14:05 15 mg Q6HR PRN Administration PAIN Polyethylene Glycol 17 gm 05/13/18 09:00 05/13/18 08:13 Miralax PO 17 gm DAILY NAVID Administration Senna 8.6 - 17.2 mg 05/13/18 09:00 05/13/18 08:09 Senokot PO 8.6 mg DAILY NAVID Administration Sodium Chloride 10 ml 05/10/18 01:00 05/13/18 00:09 Normal Saline Flush 0.9% IVP 10 ml 0100,0900,1700 NAVID Administration Sodium Chloride 10 ml 05/09/18 21:06 05/13/18 00:29 Normal Saline Flush 0.9% IVP 10 ml PRN PRN Administration NEEDED PER PROVIDER ORDERS Sodium Chloride 20 ml 05/13/18 06:35 05/13/18 06:45 Normal Saline Flush 0.9% IVP 20 ml PRN PRN Administration After Blood Draw Topiramate 150 mg 05/11/18 08:41 05/12/18 20:08 Topamax PO 150 mg QPM NAVID Administration - Lab Result Fish Bone Diagrams: 05/13/18 06:50 05/13/18 06:50 - Additional Planning My Orders: My Active Orders 05/12/18 12:41 HYDROmorphone (VIAL) [Dilaudid (Vial)] 2 mg IVP Q2H PRN 05/13/18 06:35 Heparin Flush 30 - 50 unit IVP PRN PRN Sodium Chloride Flush 0.9% [Normal Saline Flush 0.9%] 20 ml IVP PRN PRN 05/13/18 09:00 Docusate Sodium 250Mg Capsule [Colace 250Mg Capsule] 250 - 500 mg PO DAILY Polyethylene Glycol 3350 [Miralax] 17 gm PO DAILY Senna [Senokot] 8.6 - 17.2 mg PO DAILY 05/14/18 05:00 BMP - BASIC METABOLIC PANEL [CHEM] DAILYLAB CBC - COMP BLD CT W/AUTO DIFF [HEME] DAILYLAB 05/14/18 08:30 VANCOMYCIN TROUGH [CHEM] Timed Subjective - Subjective Patient Reports: Feeling Better, Other (Same pain in R knee) Objective Vital Signs: Vital Signs - 24 hr 05/12/18 05/12/18 05/13/18 13:53 16:17 00:03 Temperature 36.4 C L 36.5 C Heart Rate [ 60 Brachial] Heart Rate [ 67 Monitoring electrodes] Heart Rate [ 72 Sitting] Respiratory 20 16 Rate Blood Pressure 111/77 93/64 [Left Brachial artery] Blood Pressure 118/72 [Sitting] O2 Saturation 99 99 05/13/18 05/13/18 05/13/18 08:42 12:52 13:06 Temperature 36.4 C L 36.5 C Heart Rate [ 61 73 61 Brachial] Heart Rate [ Monitoring electrodes] Heart Rate [ Sitting] Respiratory 18 16 18 Rate Blood Pressure 106/66 102/75 [Left Brachial artery] Blood Pressure [Sitting] O2 Saturation 99 98 Oxygen O2 Source Room air I&O (Last 24 Hrs): Intake and Output Totals x24h 05/11/18 05/12/18 05/13/18 23:59 23:59 23:59 Intake Total 6262.514 4040.583 2887.334 Output Total 1655 2750 Balance 4607.514 7753.186 0287.334 General: Alert, Oriented x3 HEENT: Mucous membr. moist/pink Neuro: Non Focal Cardiovascular: Regular rate, No murmurs Respiratory: No respiratory distress, Breath sounds nml Abdomen: Soft Extremities: Other (R knee swollen, not red or warm. The debrided wound looks clean, there are 3 2x2 pustules, capped around the central surgical wound.) - Results Results: Laboratory Results WBC 7.6 x10^3/uL (4.8-10.8) 05/13/18 06:50 RBC 3.05 10^6/uL (4.20-5.40) L 05/13/18 06:50 Hgb 8.4 g/dL (12.0-16.0) L 05/13/18 06:50 Hct 25.5 % (37.0-47.0) L 05/13/18 06:50 MCV 83.7 fL (81.0-99.0) 05/13/18 06:50 MCH 27.6 pg (27.0-31.0) 05/13/18 06:50 MCHC 33.0 g/dL (32.0-36.0) 05/13/18 06:50 RDW 15.6 % (12.0-15.0) H 05/13/18 06:50 Plt Count 294 10^3/uL (130-450) 05/13/18 06:50 MPV 8.1 fL (7.9-10.8) 05/13/18 06:50 Neut # (Auto) 4.3 10^3/uL (1.5-6.6) 05/13/18 06:50 Lymph # (Auto) 2.3 10^3/uL (1.5-3.5) 05/13/18 06:50 [place] # (Auto) 0.5 10^3/uL (0.0-1.0) 05/13/18 06:50 Eos # (Auto) 0.3 10^3/uL (0.0-0.7) 05/13/18 06:50 Baso # (Auto) 0.1 10^3/uL (0.0-0.1) 05/13/18 06:50 Absolute Nucleated RBC 0.00 x10^3/uL 05/13/18 06:50 Total Counted 100 05/09/18 19:56 Band Neuts % (Manual) 12 % (0-10) H 05/09/18 19:56 Abnorm Lymph % (Manual) 0 % 05/09/18 19:56 Nucleated RBC % 0.0 /100WBC 05/13/18 06:50 Neutrophils # (Manual) 19.9 10^3/uL (1.5-6.6) H 05/09/18 19:56 Lymphocytes # (Manual) 0.2 10^3/uL (1.5-3.5) L 05/09/18 19:56 Monocytes # (Manual) 2.5 10^3/uL (0.0-1.0) H 05/09/18 19:56 Eosinophils # (Manual) 0.0 10^3/uL (0-0.7) 05/09/18 19:56 Basophils # (Manual) 0.0 10^3/uL (0-0.1) 05/09/18 19:56 Differential Comment MANUAL DIFFERENTIAL 05/09/18 19:56 Manual Slide Review Indicated 05/09/18 19:56 WBC Morphology NORMAL APPEARANCE (NORMAL) 05/09/18 19:56 Platelet Estimate NORMAL (130-450,000) (NORMAL) 05/09/18 19:56 Platelet Morphology NORMAL APPEARANCE (NORMAL) 05/09/18 19:56 RBC Morph Micro Appear NORMAL APPEARANCE (NORMAL) 05/09/18 19:56 Bld Gas Analysis Time 0549 05/11/18 05:45 Sample Site RIGHT RADIAL 05/11/18 05:45 ABG pH 7.44 (7.35-7.45) 05/11/18 05:45 ABG pCO2 38 mmHg (34-45) 05/11/18 05:45 ABG pO2 84 mmHg (80-100) 05/11/18 05:45 ABG HCO3 25.2 mmol/L (22.0-26.0) 05/11/18 05:45 ABG Total CO2 26.3 MMOL/L (21.0-29.0) 05/11/18 05:45 ABG O2 Saturation 96 % (94-98) 05/11/18 05:45 ABG Base Excess 1.0 mmol/L (-2.0-3.0) 05/11/18 05:45 Tom Test POSITIVE 05/11/18 05:45 VBG pH 7.404 (7.31-7.41) 05/12/18 08:05 VBG pCO2 42.2 mmHg (41-51) 05/10/18 09:08 VBG pO2 65.9 mmHg (25-47) H 05/10/18 09:08 VBG HCO3 20.8 mmol/L (23-28) L 05/10/18 09:08 VBG Total CO2 22.1 mmol/L (24-29) L 05/10/18 09:08 VBG O2 Saturation 92.4 % (60-80) H 05/10/18 09:08 VBG Base Excess -5.2 mmol/L (-2 - +2) L 05/10/18 09:08 Ionized Calcium 1.05 mmol/L (1.15-1.33) L 05/12/18 08:05 Respiration Rate 14 b/min 05/11/18 05:45 O2 Delivery Device VENTILATOR 05/11/18 05:45 O2 Liters/Min 21.00 LPM 05/11/18 05:45 Vent Mode SIMV 05/11/18 05:45 FiO2 50.00 05/09/18 23:25 Tidal Volume 500 mL 05/11/18 05:45 PEEP 5 cmH2O 05/11/18 04:35 Pressure Support Vent 10 cmH2O 05/09/18 23:25 Sodium 135 mmol/L (135-145) 05/13/18 06:50 Potassium 3.7 mmol/L (3.5-5.0) 05/13/18 06:50 Chloride 110 mmol/L (101-111) 05/13/18 06:50 Carbon Dioxide 21 mmol/L (21-32) 05/13/18 06:50 Anion Gap 4.0 (6-13) L 05/13/18 06:50 BUN 5 mg/dL (6-20) L 05/13/18 06:50 Creatinine 0.5 mg/dL (0.4-1.0) 05/13/18 06:50 Estimated GFR (MDRD) 133 (>89) 05/13/18 06:50 Glucose 102 mg/dL (70-100) H 05/13/18 06:50 Lactic Acid 1.4 mmol/L (0.5-2.2) 05/09/18 19:56 Calcium 7.9 mg/dL (8.5-10.3) L 05/13/18 06:50 Phosphorus 1.7 mg/dL (2.5-4.6) L 05/11/18 04:25 Magnesium 1.8 mg/dL (1.7-2.8) 05/11/18 04:25 Iron 16 ug/dL (28-170) L 05/11/18 04:25 TIBC 182 ug/dL (250-450) L 05/11/18 04:25 % Saturation 9 % (20-50) L 05/11/18 04:25 Transferrin 130 mg/dL (192-382) L 05/11/18 04:25 Total Bilirubin 1.0 mg/dL (0.2-1.0) 05/09/18 19:56 AST 39 IU/L (10-42) 05/09/18 19:56 ALT 20 IU/L (10-60) 05/09/18 19:56 Alkaline Phosphatase 56 IU/L (42-121) 05/09/18 19:56 Total Creatine Kinase 299 IU/L (22-269) H 05/10/18 04:35 Total Protein 7.0 g/dL (6.7-8.2) 05/09/18 19:56 Albumin 2.1 g/dL (3.2-5.5) L 05/12/18 04:55 Globulin 3.6 g/dL (2.1-4.2) 05/09/18 19:56 Albumin/Globulin Ratio 0.9 (1.0-2.2) L 05/09/18 19:56 Lipase 21 U/L (22-51) L 05/09/18 19:56 Vitamin B12 1099 pg/mL (180-914) H 05/11/18 04:25 Folate 20.52 ng/mL (5.90 - >24.8) 05/11/18 04:25 Urine Color YELLOW 05/09/18 23:30 Urine Clarity HAZY (CLEAR) 05/09/18 23:30 Urine pH 5.5 PH (5.0-7.5) 05/09/18 23:30 Ur Specific [place] 1.025 (1.002-1.030) 05/09/18 23:30 Urine Protein 30 mg/dL (NEGATIVE) H 05/09/18 23:30 Urine Glucose (UA) NEGATIVE mg/dL (NEGATIVE) 05/09/18 23:30 Urine Ketones 15 mg/dL (NEGATIVE) H 05/09/18 23:30 Urine Occult Blood TRACE-LYSE (NEGATIVE) 05/09/18 23:30 Urine Nitrite NEGATIVE (NEGATIVE) 05/09/18 23:30 Urine Bilirubin NEGATIVE (NEGATIVE) 05/09/18 23:30 Urine Urobilinogen 0.2 (NORMAL) E.U./dL (NORMAL) 05/09/18 23:30 Ur Leukocyte Esterase NEGATIVE (NEGATIVE) 05/09/18 23:30 Urine RBC 0-5 /HPF (0-5) 05/09/18 23:30 Urine WBC 0-3 /HPF (0-5) 05/09/18 23:30 Ur Squamous Epith Cells FEW Squamous (<= Few) 05/09/18 23:30 Amorphous Sediment Moderate /LPF 05/09/18 23:30 Urine Bacteria None Seen /HPF (None Seen) 05/09/18 23:30 Urine Casts 11-25Course Granular /LPF 05/09/18 23:30 Ur Microscopic Review INDICATED 05/09/18 23:30 Urine Culture Comments NOT INDICATED 05/09/18 23:30 Urine HCG, Qual NEGATIVE 05/09/18 23:30 Last Dose Date 05/10/18 05/11/18 08:00 Last Dose Time 214405/11/18 08:00 Vancomycin Trough 8.6 ug/mL (10.0-20.0) L 05/11/18 08:00 Urine Opiates Screen POSITIVE (NEGATIVE) H 05/09/18 23:30 Ur Oxycodone Screen NEGATIVE (NEGATIVE) 05/09/18 23:30 Urine Methadone Screen NEGATIVE (NEGATIVE) 05/09/18 23:30 Ur Propoxyphene Screen NEGATIVE (NEGATIVE) 05/09/18 23:30 Ur Barbiturates Screen NEGATIVE (NEGATIVE) 05/09/18 23:30 Ur Tricyclics Screen NEGATIVE (NEGATIVE) 05/09/18 23:30 Ur Phencyclidine Scrn NEGATIVE (NEGATIVE) 05/09/18 23:30 Ur Amphetamine Screen POSITIVE (NEGATIVE) H 05/09/18 23:30 U Methamphetamines Scrn POSITIVE (NEGATIVE) H 05/09/18 23:30 U Benzodiazepines Scrn NEGATIVE (NEGATIVE) 05/09/18 23:30 Urine Cocaine Screen NEGATIVE (NEGATIVE) 05/09/18 23:30 U Cannabinoids Screen NEGATIVE (NEGATIVE) 05/09/18 23:30 MRSA Surveill Initial NEGATIVE (NEGATIVE) 05/09/18 22:25 Sepsis Event Note (H) - Evaluation Current Stage of Sepsis: Severe sepsis Possible source of Sepsis: positive: Skin/soft tissue - Sepsis Criteria Sepsis Criteria: Recorded Heart Rate greater than 90 bpm, WBC count greater than 12,000 or less than 4000, SBP less than 90 mmHg
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
[2018-05-13] MEDS: SENNA 8.6 MG TABLET PO SCH (20:55)
[2018-05-13] MEDS: MAGNESIUM HYDROXIDE 2,400 MG/30 ML UDC PO SCH ×2 (20:56→21:17)
[2018-05-13] MEDS: TOPIRAMATE 25 MG TABLET PO SCH (20:57)
[2018-05-14] MEDS: HYDROmorphone 2 MG/ML VIAL IVP PRN ×4 (00:49→07:10)
[2018-05-14] MEDS: SODIUM CHLORIDE FLUSH 0.9% 10 ML SYRINGE IVP SCH ×2 (00:50→08:37)
[2018-05-14] MEDS: SENNA 8.6 MG TABLET PO SCH ×2 (00:54→07:10)
[2018-05-14] MEDS: KETOROLAC 15 MG/ML VIAL IVP PRN ×2 (01:59→08:20)
[2018-05-14] MEDS: SODIUM CHLORIDE FLUSH 0.9% 10 ML SYRINGE IVP PRN (02:00)
[2018-05-14] MEDS: ACETAMINOPHEN/CODEINE 300 MG/30 MG TABLET PO PRN ×2 (02:15→06:21)
[2018-05-14] MEDS: PIPERACILLIN/TAZOBACTAM 3.375 GM in SODIUM CHLORIDE 0.9% MINIBAG 100 ML IV SCH (04:37)
[2018-05-14] MEDS: D5NS W/20 MEQ KCL 1,000 ML IV SCH (06:14)
[2018-05-14 07:47] VITALS: BP 115/80
[2018-05-14] MEDS ORDERED: HYDROmorphone 2 MG TABLET PO PRN (07:56)
--- NOTE | 2018-05-14 08:02 | Discharge Plan ---
Discharge Plan Disposition: Home, Self Care Condition: Stable Prescriptions: HYDROmorphone [Dilaudid] 2 mg PO Q6HR PRN #28 tablet PRN Reason: Severe Pain Dicloxacillin [Dynapen] 250 mg PO QID #56 capsule Ferrous Gluconate [Iron] 240 mg PO DAILY #30 tablet Gauze Bandage [Gauze Pads] 1 bag TP BID #60 bandage Heating Pad [Thermophore] 1 each MC BID #1 each Soft Lens Rinse,Store Solution [Saline Solution] 360 ml MC BID #1 solution Diet: Regular Activity Restrictions: Activity as Tolerated Shower Restrictions: No Assistance Devices: Walker, Other (Knee brace) Instruction Topics: Kneecap and Knee Joint, Range Motion Knee Increase, ED Immobilizer Knee Additional Instructions or Follow Up instructions: You were admitted in critical condition from using iv drugs and a septic infected knee joint. Resume your drug rehab and stay clean. The knee infection will require 2 more weeks of oral antibiotics and dressing changes. Take the antibiotics til they are all done. Prescriptions were ordered for you for antibiotics, pain medications, saline and gauze. Do warm wet soaks of the knee twice a day. You were found to be anemic and need iron replacement, which was also ordered for you. See the Orthopedic clinic doctors here in follow-up in 1-2 weeks. Call to get an appointment: [phone]. If you have new or worsening symptoms, come to the ER. No Smoking: If you smoke, Please STOP! Call for help. Follow-up with: Checo Sylvester MD [Primary Care Provider] -
[2018-05-14 08:03] LABS: VANCOMYCIN,TROUGH 20.8 ug/mL (10.0-20.0)
[2018-05-14 08:04] LABS: BUN - BLOOD UREA NITROGEN < 5 mg/dL (6-20); CALCIUM 8.1 mg/dL (8.5-10.3); CARBON DIOXIDE - CO2 21 mmol/L (21-32); CHLORIDE 107 mmol/L (101-111); CREATININE 0.7 mg/dL (0.4-1.0); GFR - MDRD 90 (>89); GLUCOSE 76 mg/dL (70-100); SODIUM 135 mmol/L (135-145)
[2018-05-14 08:14] LABS: BASOPHILS # (AUTO) 0.1 10^3/uL (0.0-0.1); BASOPHILS % (AUTO) 1.1 %; EOSINOPHILS # (AUTO) 0.3 10^3/uL (0.0-0.7); EOSINOPHILS % (AUTO) 3.9 %; LYMPHOCYTES # (AUTO) 2.1 10^3/uL (1.5-3.5); LYMPHOCYTES % (AUTO) 26.2 %; MEAN CORPUSCULAR HEMOGLOBIN 27.7 pg (27.0-31.0); MEAN CORPUSCULAR HGB CONC 33.4 g/dL (32.0-36.0); MEAN CORPUSCULAR VOLUME 82.9 fL (81.0-99.0); MEAN PLATELET VOLUME 7.6 fL (7.9-10.8); MONOCYTES # (AUTO) 0.6 10^3/uL (0.0-1.0); MONOCYTES % (AUTO) 7.6 %; NEUTROPHILS # (AUTO) 4.9 10^3/uL (1.5-6.6); NEUTROPHILS % (AUTO) 61.2 %; PLT - PLATELET COUNT 353 10^3/uL (130-450); RED BLOOD COUNT 3.24 10^6/uL (4.20-5.40); RED CELL DISTRIBUTION WIDTH 15.3 % (12.0-15.0)
[2018-05-14] MEDS: FERROUS GLUCONATE 324 MG TABLET PO SCH (08:20)
[2018-05-14] MEDS: ENOXAPARIN 40 MG/0.4 ML SYRINGE SUBQ SCH (08:37)
[2018-05-14] MEDS: POLYETHYLENE GLYCOL 3350 17 GM PACKET PO SCH (08:37)
[2018-05-14] MEDS ORDERED: DICLOXACILLIN 250 MG CAPSULE PO SCH (09:00)
[2018-05-14] MEDS ORDERED: DOCUSATE SODIUM 250 MG CAPSULE PO SCH (09:00)
--- NOTE | 2018-05-14 10:40 | PROVIDER PROGRESS NOTE ---
Subjective - Prog Note Date Prog Note Date: 05/14/18 Prog Note Time: 10:38 - Subjective Pt reports feeling: Improved Objective - Vital Signs/Intake & Output Vital Signs: Vital Signs x48h Temp Pulse Resp BP Pulse Ox 05/14/18 07:45 36.5 C 75 20 115/80 100 Intake & Output: Intake & Output 05/11/18 05/12/18 05/13/18 05/14/18 23:59 23:59 23:59 23:59 Intake Total 6262.514 4040.583 5087.334 3090.000 Output Total 1655 2750 Balance 4607.514 2202.343 1145.334 3090.000 - Lab Results Fish Bones: 05/14/18 08:10 05/14/18 07:45 Other Labs: Lab Results x24hrs 05/14/18 05/14/18 05/14/18 Range/Units 08:10 07:45 07:45 WBC 8.0 (4.8-10.8) x10^3/uL RBC 3.24 L (4.20-5.40) 10^6/uL Hgb 9.0 L (12.0-16.0) g/dL Hct 26.9 L (37.0-47.0) % MCV 82.9 (81.0-99.0) fL MCH 27.7 (27.0-31.0) pg MCHC 33.4 (32.0-36.0) g/dL RDW 15.3 H (12.0-15.0) % Plt Count 353 (130-450) 10^3/uL MPV 7.6 L (7.9-10.8) fL Neut # (Auto) 4.9 (1.5-6.6) 10^3/uL Lymph # (Auto) 2.1 (1.5-3.5) 10^3/uL [place] # (Auto) 0.6 (0.0-1.0) 10^3/uL Eos # (Auto) 0.3 (0.0-0.7) 10^3/uL Baso # (Auto) 0.1 (0.0-0.1) 10^3/uL Absolute Nucleated RBC 0.00 x10^3/uL Nucleated RBC % 0.0 /100WBC Sodium 135 (135-145) mmol/L Potassium 3.5 (3.5-5.0) mmol/L Chloride 107 (101-111) mmol/L Carbon Dioxide 21 (21-32) mmol/L Anion Gap 7.0 (6-13) BUN < 5 L (6-20) mg/dL Creatinine 0.7 (0.4-1.0) mg/dL Estimated GFR (MDRD) 90 (>89) Glucose 76 (70-100) mg/dL Calcium 8.1 L (8.5-10.3) mg/dL Last Dose Date 05/14/18 Last Dose Time 0102 Vancomycin Trough 20.8 H (10.0-20.0) ug/mL - Other Results/Comments Other Results/Comments: EXAM: Wound is benign. Wound - more shallow with scant drainage. No prepatella effusion. Minimally tender, swollen, or erythema now. Good knee AROM. Other superficial pustules are clearing as well Sepsis Event Note (H) - Evaluation Current Stage of Sepsis: Severe sepsis Possible source of Sepsis: positive: Skin/soft tissue - Sepsis Criteria Sepsis Criteria: Recorded Heart Rate greater than 90 bpm, WBC count greater than 12,000 or less than 4000, SBP less than 90 mmHg Assessment/Plan - Problem List (1) Septic prepatellar bursitis of right knee Impression: Improved PLAN: Ready for outpt management of infection per medicine. Follow up in orthopedic clinic in 1-2 weeks for final wound check.
--- NOTE | 2018-05-19 05:24 | DISCHARGE SUMMARY ---
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 The patient injects her drugs near her knees and for 10 days prior to this admission had swelling of the right knee with worsening pain and redness, and was becoming more tired and more confused. On admission, she told the Hospitalist that she had not used heroin for 5 days, but her admission urine toxicology screen was positive for opiates as well as methamphetamine and amphetamine. The patient was agitated, writhing, some muscles in contractures, and required sedation, and was then paralyzed and put on a ventilator, and felt to be in heroin withdrawal. She also had incision and drainage of the right knee area in the emergency room, which revealed pus. She had an admission blood pressure in the 70s-90s systolic with heart rate of 135, and lactic acid level of 8.5, and was felt to be in septic shock and admitted to the ICU. HOSPITAL COURSE/DISCHARGE DIAGNOSES 1. Septic shock. The patient required IV Levophed and saline hydration to maintain a blood pressure near 90. She had no fever throughout her hospital stay, but her white blood count on admission was 22.6 with a left shift, lactic acid level of 8.5 and was tachycardic and hypotensive. The blood pressure responded to pressors and saline. The iv pressors were able to be titrated to off in 24 hours. She was started on broad spectrum antibiotics to cover a septic knee from IV drug injections, as the source of her sepsis. The patient was on IV vancomycin, and responded to this. She was discharged home to complete a course of antibiotics for the infected knee, see below. 2. Septic prepatellar bursitis of the right knee. After the incision and drainage done by the emergency room doctor, the fluid was sent off and only grew normal skin saad indicating no resistant Staphylococcus or Strep species. The right knee underwent an MRI to look for osteomyelitis, and there were no signs of osteomyelitis spread. She was kept on IV vancomycin for 4 days, and then discharged on dicloxacillin 250 mg p.o. q.i.d. to complete 2 additional weeks of oral antibiotics. She was seen in consult by the orthopedic surgeon, Dr. Marsical, who advised dressing changes and management, and did not have to repeat the debridement. He told her she needed an orthopedic clinic appointment in the next 1-2 weeks, and to finish the course of antibiotics. She required a wheelchair as well as a front-wheeled walker at the time of discharge for ambulation. 3. Heroin withdrawal. Despite the patient denying use of heroin by injection for 5 days before admission, she had positive opiates indicating heroin use very recently. Because of apparent withdrawal, she was kept on the sedative and paralytic iv drips for over 24 hours, this was then slowly tapered to off, and she was extubated after good respiratory parameters. She was lethargic, but cooperative on that day and improved daily, and eventually was remorseful that she had restarted heroin use. Social workers offered her resources for rehabilitation. 4. Methamphetamine use. The patient reported to me that she has only tried methamphetamine recently, received it from her heroin supplier. She did seem honest in wanting to stop her drug use and addiction. 5. Acute kidney injury. Her admission BUN and creatinine were 14 and 1.5. The creatinine improved daily and was normal after just 2 days of IV fluids. 6. Hypokalemia. The patient's admitting potassium was 3.1, the following day was 2.8, and then eventually remained in the normal range after replacement. 7. Heart murmur. The first 2 days of admission, a systolic heart murmur was audible. Because of her IV drug use history, there was concern for endocarditis. She underwent an Echo that showed no evidence of endocarditis and normally functioning valves. She also had normal LV and RV contractility. The murmur was not present by day 3, therefore it was felt to be from her infection and volume depletion with high output and high flow across the valves. 8. Anemia, iron deficiency. Her hemoglobin on admission was 10.6, which dropped to as low as 8.4 after 4 days of IV hydration. She did not receive any blood transfusion. She underwent lab tests that showed adequate folate and B12 levels, but low iron stores with iron of 16, percent saturation of 9. She was started on oral replacement, and discharged home with this. 9. History of seizures. After extubation, the patient was placed on her home dose of Topamax. There was no seizure activity while here. LABORATORY AND IMAGING: Reviewed and summarized above. ALLERGIES: NONE. MEDICATIONS AT DISCHARGE 1. Topamax 150 mg every night. 2. Dilaudid 2 mg every 6 hours, 28 tablets total were given, and this required a paper prescription. 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 3. Dicloxacillin 250 mg p.o. q.i.d. for 14 more days. 4. Iron 240 mg p.o. daily for a month. 5. Gauze pads, saline and a heating pad were also prescribed. CONDITION AT DISCHARGE: Stable. PHYSICAL EXAMINATION VITAL SIGNS: Blood pressure 115/80, pulse 75 in sinus rhythm, afebrile, room air saturation 100%. HEENT: Unremarkable. NECK: Without JVD or carotid bruits. CHEST: Clear. HEART: Heart sounds normal. ABDOMEN: Soft, nontender. EXTREMITIES: Right knee redness with minimal swelling and minimal warmth, and a central scar over the patella with 3 surrounding pustules. Her range of motion of the right knee was diminished, and the right knee wound was in a dry bandage, and the leg was in a knee brace. NEUROLOGIC: Grossly intact. FOLLOWUP: She is to see Orthopedic surgery in clinic here in 1-2 weeks. An appointment should be arranged. She is to see her PCP in 5-7 days for hospital followup. Information was given to her regarding resources for drug rehabilitation by our Social Workers. CODE STATUS: FULL CODE. Time required to complete this entire discharge, chart review, patient education, prescription orders, dictation: 60 minutes. cc: Checo Sylvester MD TD: 05/19/2018 00:42 [facility]
== END 2018-05-14 14:05 | disposition home or self-care (01) | DRG 871 ==
LOC: ED 18:40 → ICU 21:06 → MS2 05-12 15:11
PROVIDERS: ADMIT Internal Medicine; ATTEND Internal Medicine
PROC: 5A1935Z Respiratory Ventilation, Less than 24 Consecutive Hours (ICD-10-PCS; principal; 2018-05-09)
DX: A41.89 Other specified sepsis (principal); R65.21 Severe sepsis with septic shock; F11.23 Opioid dependence with withdrawal; N17.9 Acute kidney failure, unspecified; L03.115 Cellulitis of right lower limb; M71.161 Other infective bursitis, right knee; D50.9 Iron deficiency anemia, unspecified; F32.9 Major depressive disorder, single episode, unspecified; E87.6 Hypokalemia; G40.909 Epilepsy, unspecified, not intractable, without status epilepticus; Z78.1 Physical restraint status; Z72.89 Other problems related to lifestyle
CPT/HCPCS: 27230; 31500; 36415; 36556; 36600; 71045; 73723; 80048; 80053; 80202; 80306; 81001; 81025; 82040; 82330; 82550; 82607; 82746; 82803; 83540; 83605; 83690; 83735; 84100; 84466; 85025; 87040; 87070; 87150; 87205; 93306; 94002; 94003; 94770; 96365; 96375; 97161; 97165; 97530; 99152; 99291; A9270; A9585; J1170; J1650; J2060; J3010; J3370; J7040; 81003; 87086; 99284

== ENCOUNTER 2018-08-27 13:52 | Outpatient (CLI) | payer OTHER, MEDICAID | END 2018-08-27 23:59 | disposition home or self-care (01) | LOC: LAB 13:52 | PROVIDERS: ATTEND Pathology Blood Banking & Transfusion Medicine | DX: Z01.89 Encounter for other specified special examinations (principal) ==